=== PATIENT | female | born 1960 | race Caucasian/White ===

== ENCOUNTER 2017-01-12 06:59 | Inpatient (IN) | payer BC ==
[~2017-01-12] VITALS: Ht 167.6 cm; Wt 86.2 kg
[~2017-01-12 06:59] MED LIST: ASPI-482 PO; ATOR40TA59 PO; FLUT1DIS3 IH; LISI40TA PO; METH4TAB2 PO
[2017-01-12] MEDS ORDERED: IPRATRPIUM/ALBUTEROL 0.5/2.5MG 3 ML NEBU. NEB ONE ×3 (07:15→08:00)
--- NOTE | 2017-01-12 07:27 | RAD ---
Portable chest, 01/12/2017: History: Shortness of breath Comparison is made to a study from 10/15/2014. The heart size and pulmonary vascularity are normal. There is mild tortuosity of the thoracic aorta. No pulmonary infiltrates are seen. There is no evidence of pleural fluid. IMPRESSION: No acute cardiopulmonary abnormality is detected.
[2017-01-12] MEDS ORDERED: methylPREDNISolone SOD SUCC PF 125 MG/2 ML VIAL. IV ONE (07:30)
[2017-01-12 07:51] LABS: CALCIUM 9.8 mg/dL (8.5-10.1); CREATININE 0.7 mg/dL (0.6-1.0); GFR 85.9
[2017-01-12 07:52] LABS: BASO # 0.1 x10^3/uL (0.0-0.2); BASO % 1 % (0-3); EOS % 10 % (0-3); HEMATOCRIT 39.9 % (36.0-47.0); HEMOGLOBIN 13.5 g/dL (12.0-15.5); LYMPH # 1.1 x10^3/uL (1.0-4.8); LYMPH % 19 % (24-48); MEAN CORPUSCULAR HEMOGLOBIN 34 pg (25-35); MEAN CORPUSCULAR HGB CONC 34 g/dL (31-37); MEAN CORPUSCULAR VOLUME 101 fL (79-100); MONO % 9 % (0-9); NEUT % 61 % (31-73); PLATELET COUNT 229 x10^3/uL (140-400); RED BLOOD COUNT 3.96 x10^6/uL (3.50-5.40); RED CELL DISTRIBUTION WIDTH 12.7 % (11.5-14.5); WHITE BLOOD COUNT 5.8 x10^3/uL (4.0-11.0)
--- NOTE | 2017-01-12 07:56 | PHYS DOC ---
Past Medical History Past Medical History: Asthma, COPD, High Cholesterol, Hypertension Past Surgical History: Other Additional Past Surgical Histo: ovary removal Alcohol Use: Occasionally Drug Use: None Adult General Chief Complaint Chief Complaint: SHORTNESS OF BREATH HPI HPI 56-year-old female presenting to the emergency department today with shortness of breath. She has a history of COPD. She is to nebulizers at home without much improvement. She reports his symptoms started around 4:00 this morning. Location lungs. Duration intermittent. Mildly alleviated with nebulizer. She denies unilateral leg swelling hemoptysis personal or family history of blood clotting disorder. Review of systems is negative for chest pain fevers chills nausea or vomiting. She denies diaphoresis. All other review of systems is negative unless otherwise noted in history of present illness. ED course: 56-year-old female presenting to the emergency department today with shortness of breath without chest pain. Pertinent physical exam findings showed wheezing bilaterally. Nebulizer given. On reevaluation the patient did not improve. IV steroids and another nebulizer was ordered. The patient was then admitted for further evaluation workup and care including nebulized beta agonists. Review of Systems Review of Systems SEE ABOVE. Current Medications Current Medications Current Medications Medications (Trade) Dose Ordered Sig/Bren Start Time Stop Time Status Last Admin Dose Admin Albuterol Sulfate (Ventolin Neb Soln) 10 mg 1X ONCE 01/12/17 08:00 01/12/17 08:04 DC 01/12/17 08:36 10 MG Albuterol/ Ipratropium (Duoneb) 3 ml 1X ONCE 01/12/17 08:00 01/12/17 08:04 DC 01/12/17 08:26 3 ML Methylprednisolone Sodium Succinate (SOLU-Medrol 125MG VIAL) 125 mg 1X ONCE 01/12/17 07:30 01/12/17 07:36 DC 01/12/17 07:44 125 MG Sodium Chloride 1,000 ml @ 100 mls/hr Q10H 01/12/17 08:06 01/13/17 08:05 Allergies Allergies Allergies Coded Allergies Type Severity Reaction Last Updated Verified No Known Drug Allergies 10/15/14 No Physical Exam Physical Exam SEE ABOVE Constitutional: Well developed, well nourished, no acute distress, non-toxic appearance. [] HENT: Normocephalic, atraumatic, bilateral external ears normal, oropharynx moist, no oral exudates, nose normal. [] Eyes: PERRLA, EOMI, conjunctiva normal, no discharge. [] Neck: Normal range of motion, no tenderness, supple, no stridor. [] Cardiovascular:Heart rate regular rhythm, no murmur [] Lungs & Thorax: Bilateral breath sounds clear to auscultation [] Abdomen: Bowel sounds normal, soft, no tenderness, no masses, no pulsatile masses. [] Skin: Warm, dry, no erythema, no rash. [] Back: No tenderness, no CVA tenderness. [] Extremities: No tenderness, no cyanosis, no clubbing, ROM intact, no edema. [] Neurologic: Alert and oriented X 3, normal motor function, normal sensory function, no focal deficits noted. [] Psychologic: Affect normal, judgement normal, mood normal. [] Current Patient Data Vital Signs Vital Signs Date Time Temp Pulse Resp B/P (MAP) Pulse Ox O2 Delivery O2 Flow Rate FiO2 01/12/17 07:55 93 12 115/58 (77) 93 Room Air 01/12/17 07:04 98.3 98.3 Lab Values Laboratory Tests Test 01/12/17 07:25 White Blood Count 5.8 x10^3/uL (4.0-11.0) Red Blood Count 3.96 x10^6/uL (3.50-5.40) Hemoglobin 13.5 g/dL (12.0-15.5) Hematocrit 39.9 % (36.0-47.0) Mean Corpuscular Volume 101 fL (79-100) H Mean Corpuscular Hemoglobin 34 pg (25-35) Mean Corpuscular Hemoglobin Concent 34 g/dL (31-37) Red Cell Distribution Width 12.7 % (11.5-14.5) Platelet Count 229 x10^3/uL (140-400) Neutrophils (%) (Auto) 61 % (31-73) Lymphocytes (%) (Auto) 19 % (24-48) L Monocytes (%) (Auto) 9 % (0-9) Eosinophils (%) (Auto) 10 % (0-3) H Basophils (%) (Auto) 1 % (0-3) Neutrophils # (Auto) 3.5 x10^3uL (1.8-7.7) Lymphocytes # (Auto) 1.1 x10^3/uL (1.0-4.8) Monocytes # (Auto) 0.5 x10^3/uL (0.0-1.1) Eosinophils # (Auto) 0.6 x10^3/uL (0.0-0.7) Basophils # (Auto) 0.1 x10^3/uL (0.0-0.2) Sodium Level 137 mmol/L (136-145) Potassium Level 4.0 mmol/L (3.5-5.1) Chloride Level 98 mmol/L (98-107) Carbon Dioxide Level 24 mmol/L (21-32) Anion Gap 15 (6-14) H Blood Urea Nitrogen 8 mg/dL (7-20) Creatinine 0.7 mg/dL (0.6-1.0) Estimated GFR (Cockcroft-Gault) 85.9 Glucose Level 131 mg/dL (70-99) H Calcium Level 9.8 mg/dL (8.5-10.1) Total Bilirubin 0.4 mg/dL (0.2-1.0) Direct Bilirubin 0.1 mg/dL (0.0-0.2) Aspartate Amino Transferase (AST) 73 U/L (15-37) H Alanine Aminotransferase (ALT) 108 U/L (14-59) H Alkaline Phosphatase 84 U/L (46-116) Troponin I Quantitative < 0.017 ng/mL (0.000-0.055) QR-Jhi-H-Type Natriuretic Peptide 21 pg/mL (0-124) Total Protein 8.1 g/dL (6.4-8.2) Albumin 4.0 g/dL (3.4-5.0) Lipase 174 U/L (73-393) Laboratory Tests 01/12/17 07:25 Laboratory Tests 01/12/17 07:25 EKG EKG [] Radiology/Procedures Radiology/Procedures [] Course & Med Decision Making Course & Med Decision Making Pertinent Labs and Imaging studies reviewed. (See chart for details) [] Dragon Disclaimer Dragon Disclaimer This electronic medical record was generated, in whole or in part, using a voice recognition dictation system. Departure Departure Impression: Primary Impression: COPD exacerbation Disposition: ADMITTED INPATIENT Admitting Physician: Shobha Todd Condition: IMPROVED Referrals: MICHELLE LUCIANO (PCP) ERUM POSEY MD 6, 2017 07:56
[2017-01-12 07:57] LABS: DIRECT BILIRUBIN 0.1 mg/dL (0.0-0.2); TOTAL BILIRUBIN 0.4 mg/dL (0.2-1.0); TOTAL PROTEIN 8.1 g/dL (6.4-8.2)
[2017-01-12] MEDS ORDERED: ALBUTEROL SULFATE 2.5 MG/3 ML NEBU. CONT NEB ONE (08:00)
--- NOTE | 2017-01-12 08:44 | ACF ---
LEDA CURRY 01/12/17 0844: Admit Criteria Forms Admit Criteria Forms Admit Criteria Forms COPD Clinical Indications for Admission to Inpatient Care (Place 'X' for any and all applicable criteria): Admission is indicated for ANY ONE of the following (1)(2)(3): [ ]I. Acute exacerbation by high-risk comorbidity (e.g., pneumonia, dysrhythmia, heart failure, pleural effusion, pneumothorax) or severe underlying COPD (e.g., steroid dependent) [X]II. Inpatient admission required rather than observation care (see Chronic Obstructive Pulmonary Disease: Observation Care) because of ANY ONE of the following: [X]a) New or pre-existing signs or symptoms of COPD (eg, dyspnea or Tachypnea at rest or with minimal activity) that persist despite outpatient and observation care treatment [ ]b) New-onset hypoxemia (room air SaO2 less than 90%, PO2 less than 60 mm Hg (8.0 kPa)) that persists despite outpatient and observation care treatment [ ]c) Worsening of pre-existing hypoxemia (eg, new or increased requirement for supplemental oxygen to maintain oxygenation at baseline level) that persists despite outpatient and observation care treatment, with oxygen treatment needs performable only in acute inpatient setting [ ]d) Hypercarbia (PCO2 greater than 40 mm Hg (5.3 kPa))-induced respiratory acidosis (pH less than 7.35) that persists despite outpatient and observation care treatment [ ]e) Supplemental oxygen or respiratory treatments for over 24 hours that are performable only in acute inpatient setting [ ]f) Chest tube placement with active evacuation (e.g., suction, drainage) (5) [ ]g) Other condition, treatment or monitoring requiring inpatient admission [ ]III. Planned invasive surgical or diagnostic procedures requiring acute- care hospitalization [ ]IV. Acute respiratory failure (e.g., uncompensated hypercarbia, severe hypoxemia) [ ]V. Severe comorbid condition (e.g., severe steroid myopathy, acute vertebral fracture) that has acutely worsened pulmonary function [ ]. Confusion state, lethargy, obtundation, stupor or coma Extended stay beyond goal length of stay may be needed for (31)(32): [ ]a ) Respiratory Failure. [ ]b) Severe or persisting hypoxemia or hypercarbia [ ]c) Severe or persistent dyspnea [ ]d) Comorbidities (e.g. chronic heart failure, atrial fibrillation with rapid response, pneumonia) [ ]e) Malnutrition The original [facility] [employer] content created by [facility] [employer] has been revised. The portions of the content which have been revised are identified through the use of italic text or in bold, and [facility] has neither reviewed nor approved the modified material. All other unmodified content is copyright [facility] [employer]. Please see references footnoted in the original [facility] [employer] edition 2016 ERUM POSEY MD 01/17/17 0354: Admit Criteria Forms Admit Criteria Forms Admit Criteria Forms I am unable to edit this form. This patient was placed as observation status. This is the only avenue in our electronic medical record for me to document this. All of the above information is not my professional medical opinion. LEDA CURRY Jan 12, 2017 08:44 ERUM POSEY MD Jan 17, 2017 03:54
[2017-01-12] MEDS ORDERED: guaiFENesin DM 200MG/20MG 10 ML SYRUP PO PRN (09:15)
[2017-01-12] MEDS: IV NORMAL SALINE 1000ML BAG 1,000 ML IV SCH ×2 (10:11→21:05)
[2017-01-12] MEDS ORDERED: ASPIRIN ENTERIC COATED 81 MG TABLET.DR. PO SCH ×2 (10:30→21:00)
[2017-01-12] MEDS ORDERED: LISINOPRIL 40 MG TABLET. PO SCH ×2 (10:30→21:00)
[2017-01-12] MEDS ORDERED: SIMV40TA3 PO (10:40)
[2017-01-12 11:00] VITALS: BP 121/77
[2017-01-12] MEDS: IPRATRPIUM/ALBUTEROL 0.5/2.5MG 3 ML NEBU. NEB SCH ×3 (11:13→19:46)
--- NOTE | 2017-01-12 11:19 | EKG ---
[facility] [address] [place] [address] Test Date: 2017-01-12 Test Time: 07:09:43 Pat Name: DEBRA KEYS Department: Room: Gender: F Certified Wellness Program Coordinator: : 1960 Requested By: ERUM POSEY Order Number: [id number] Reading MD: Measurements Intervals [place] Rate: 96 P: 45 MA: 146 QRS: 42 QRSD: 76 T: 54 QT: 342 QTc: 433 Interpretive Statements SINUS RHYTHM NORMAL ECG RI6.01 Unconfirmed report No previous ECG available for comparison
--- NOTE | 2017-01-12 12:42 | PDOC1 ---
History and Physical Date of Admission Date of Admission DATE: 01/12/17 TIME: 12:37 Identification/Chief Complaint Chief Complaint could not breathe Problems: Source Source: Caregiver, Chart review, Patient History of Present Illness History of Present Illness 56 y.o female, prev smoker, quit on October 14, 2014, admits to [facility] with few cigs rarely, sx started few weeks ago, UTI sxs, cough productive, soa, no fevers,denies recent travel or sick contacts, Went to PCP, was given possibly some pO pred and antibiotic? unrecalled names, she claims he did not fill one Rx. Was told could be seasonal allergies. BUt last night/today could not get dep breath hence went to ER, Was wheezy upon arrival, now better after ER tx. CXR neg. Sounds nasal, Wants to go home Past Medical History Cardiovascular: HTN, Hyperlipidemia Pulmonary: Bronchitis, COPD Past Surgical History Past Surgical History: Other, No pertinent history Family History Family History: Heart Disease Social History Smoke: Quit ALCOHOL: social Drugs: None Current Problem List Problem List Problems Medical Problems: (1) COPD exacerbation Status: Acute Problems: Current Medications Current Medications Current Medications Albuterol/ Ipratropium (Duoneb) 3 ml 1X ONCE NEB Last administered on 07:28; Start 01/12/17 at 07:15; Stop 01/12/17 at 07:16; Status DC Methylprednisolone Sodium Succinate (SOLU-Medrol 125MG VIAL) 125 mg 1X ONCE IV Last administered on 01/12/17 07:44; Start 01/12/17 at 07:30; Stop 01/12/17 at 07:36; Status DC Albuterol/ Ipratropium (Duoneb) 3 ml 1X ONCE NEB Last administered on 08:20; Start 01/12/17 at 08:00; Stop 01/12/17 at 08:04; Status DC Albuterol/ Ipratropium (Duoneb) 3 ml 1X ONCE NEB Last administered on 08:26; Start 01/12/17 at 08:00; Stop 01/12/17 at 08:04; Status DC Albuterol Sulfate (Ventolin Neb Soln) 10 mg 1X ONCE CONT NEB Last administered on 01/12/17 08:36; Start 01/12/17 at 08:00; Stop 01/12/17 at 08:04; Status DC Sodium Chloride 1,000 ml @ 100 mls/hr Q10H IV Last administered on 01/12/17 10 :11; Start 01/12/17 at 08:06; Stop 01/13/17 at 08:05 Albuterol/ Ipratropium (Duoneb) 3 ml RTQID NEB Last administered on 01/12/17 11 :13; Start 01/12/17 at 12:00 Guaifenesin (Robitussin Dm) 10 ml PRN Q6HRS PRN PO COUGH; Start 01/12/17 at 09: 15 Aspirin (Ecotrin) 81 mg DAILY PO ; Start 01/12/17 at 10:30; Stop 01/12/17 at 10:40 ; Status DC Atorvastatin Calcium (Lipitor) 40 mg QHS PO ; Start 01/13/17 at 21:00; Status Cancel Lisinopril (Prinivil) 40 mg DAILY PO ; Start 01/12/17 at 10:30; Stop 01/12/17 at 10:40; Status DC Aspirin (Ecotrin) 81 mg QHS PO ; Start 01/12/17 at 21:00 Lisinopril (Prinivil) 40 mg HS PO ; Start 01/12/17 at 21:00 Simvastatin (Zocor) 40 mg QHS PO ; Start 01/12/17 at 21:00 Active Scripts Active Medrol (Methylprednisolone) 4 Mg Tab.ds.pk 1 Pkg PO UD Advair 250-50 Diskus (Fluticasone/Salmeterol) 1 Each Disk.w.dev 1 Puff IH BID Reported Simvastatin 40 Mg Tablet 40 Mg PO HS Aspir 81 (Aspirin) 81 Mg Tablet.dr 1 Tab PO DAILY Lisinopril 40 Mg Tablet 1 Tab PO DAILY Allergies Allergies: Coded Allergies: No Known Drug Allergies (Unverified , 10/15/14) ROS General: No: Chills, Night Sweats, Fatigue, Malaise, Appetite, Other Eyes: No Blurry vision, No Decreased vision, No Double vision, No Dry eyes, No Excessive tearing, No Eye Pain, No Itchy Eyes, No Loss of vision, No Photophobia , No Scotomata, No Uses contacts, No Uses glasses, No Other HEENT: No: Heacaches, Visual Changes, Hearing change, Nasal congestion, Nasal discharge, Oral lesions, Sinus pain, Sore Throat, Epistaxis, Sneezing, Snoring, Tinnitus, Vertigo, Vocal changes, Other ALLERGY AND IMMUNOLOGY: No: Hives, Insect Bite Sensitivity, Itchy/Watery Eyes, Nasal Congestion, Post Nasal Drip, Seasonal Allergies, Other Hematological and Lymphatic: No: Bleeding Problems, Blood Clots, Blood Transfusions, Brusing, Night Sweats, Pallor, Swollen Lymph Nodes, Other ENDOCRINE: No: Breast Changes, Galactorrhea, Hair Pattern Changes, Hot Flashes , Malaise/lethargy, Mood Swings, Palpitations, Polydipsia/polyuria, Skin Changes , Temperature Intolerance, Unexpected Weight Changes, Other Breast: No New/Changing Breast Lumps, No Nipple changes, No Nipple discharge, No Other Respiratory: YES: Cough, Shortness of breath, SOB with excertion Gastrointestinal: No Nausea, No Vomiting, No Abdominal Pain, No Diarrhea, No Constipation, No Melena, No Hematochezia, No Other Genitourinary: No Dysuria, No Frequency, No Incontinence, No Hematuria, No Retention, No Discharge, No Urgency, No Pain, No Flank Pain, No Other, No , No , No , No , No , No , No Musculoskeletal: No Gait Disturbance, No Joint Pain, No Joint Stiffness, No Joint Swelling, No Muscle Pain, No Muscular Weakness, No Pain In:, No Swelling In:, No Other Neurological: No Behavorial Changes, No Bowel/Bladder ControlChng, No Confusion , No Dizziness, No Gait Disturbance, No Headaches, No Impaired Coord/balance, No Memory Loss, No Numbness/Tingling, No Seizures, No Speech Problems, No Tremors, No Visual Changes, No Weakness, No Other Skin: No Dry Skin, No Eczema, No Hair Changes, No Lumps, No Mole Changes, No Mottling, No Nail Changes, No Pruritus, No Rash, No Skin Lesion Changes, No Other, No Acne Physical Exam General: Alert, Oriented X3, Cooperative, No acute distress HEENT: Atraumatic, PERRLA Lungs: Normal air movement, Other (dec BS, but no wheeZes) Breasts: Normal, Rt breast nml w/o mass, Lt breast nml w/o mass, Nipples normal Abdomen: Normal bowel sounds, Soft, No tenderness, No hepatosplenomegaly, No masses Rectal Exam: not examined PELVIC: Nml ext genitalia Extremities: No clubbing, No cyanosis, No edema, Normal pulses, No tenderness/ swelling Skin: No rashes, No breakdown, No significant lesion Neuro: Normal gait, Normal speech, Strength at 5/5 X4 ext, Normal tone, Sensation intact, Cranial nerves 3-12 NL, Reflexes 2+ Psych/Mental Status: Mental status NL, Mood NL Vitals Vitals Vital Signs Date Time Temp Pulse Resp B/P (MAP) Pulse Ox O2 Delivery O2 Flow Rate FiO2 01/12/17 11:16 94 Room Air 01/12/17 11:00 97.5 98 18 121/77 (92) 97.5 Labs Labs Laboratory Tests Test 01/12/17 07:25 White Blood Count 5.8 x10^3/uL (4.0-11.0) Red Blood Count 3.96 x10^6/uL (3.50-5.40) Hemoglobin 13.5 g/dL (12.0-15.5) Hematocrit 39.9 % (36.0-47.0) Mean Corpuscular Volume 101 fL (79-100) Mean Corpuscular Hemoglobin 34 pg (25-35) Mean Corpuscular Hemoglobin Concent 34 g/dL (31-37) Red Cell Distribution Width 12.7 % (11.5-14.5) Platelet Count 229 x10^3/uL (140-400) Neutrophils (%) (Auto) 61 % (31-73) Lymphocytes (%) (Auto) 19 % (24-48) Monocytes (%) (Auto) 9 % (0-9) Eosinophils (%) (Auto) 10 % (0-3) Basophils (%) (Auto) 1 % (0-3) Neutrophils # (Auto) 3.5 x10^3uL (1.8-7.7) Lymphocytes # (Auto) 1.1 x10^3/uL (1.0-4.8) Monocytes # (Auto) 0.5 x10^3/uL (0.0-1.1) Eosinophils # (Auto) 0.6 x10^3/uL (0.0-0.7) Basophils # (Auto) 0.1 x10^3/uL (0.0-0.2) Sodium Level 137 mmol/L (136-145) Potassium Level 4.0 mmol/L (3.5-5.1) Chloride Level 98 mmol/L (98-107) Carbon Dioxide Level 24 mmol/L (21-32) Anion Gap 15 (6-14) Blood Urea Nitrogen 8 mg/dL (7-20) Creatinine 0.7 mg/dL (0.6-1.0) Estimated GFR (Cockcroft-Gault) 85.9 Glucose Level 131 mg/dL (70-99) Calcium Level 9.8 mg/dL (8.5-10.1) Total Bilirubin 0.4 mg/dL (0.2-1.0) Direct Bilirubin 0.1 mg/dL (0.0-0.2) Aspartate Amino Transf (AST/SGOT) 73 U/L (15-37) Alanine Aminotransferase (ALT/SGPT) 108 U/L (14-59) Alkaline Phosphatase 84 U/L (46-116) Troponin I Quantitative < 0.017 ng/mL (0.000-0.055) BJ-Rui-P-Type Natriuretic Peptide 21 pg/mL (0-124) Total Protein 8.1 g/dL (6.4-8.2) Albumin 4.0 g/dL (3.4-5.0) Lipase 174 U/L (73-393) Laboratory Tests Test 01/12/17 07:25 White Blood Count 5.8 x10^3/uL (4.0-11.0) Red Blood Count 3.96 x10^6/uL (3.50-5.40) Hemoglobin 13.5 g/dL (12.0-15.5) Hematocrit 39.9 % (36.0-47.0) Mean Corpuscular Volume 101 fL (79-100) Mean Corpuscular Hemoglobin 34 pg (25-35) Mean Corpuscular Hemoglobin Concent 34 g/dL (31-37) Red Cell Distribution Width 12.7 % (11.5-14.5) Platelet Count 229 x10^3/uL (140-400) Neutrophils (%) (Auto) 61 % (31-73) Lymphocytes (%) (Auto) 19 % (24-48) Monocytes (%) (Auto) 9 % (0-9) Eosinophils (%) (Auto) 10 % (0-3) Basophils (%) (Auto) 1 % (0-3) Neutrophils # (Auto) 3.5 x10^3uL (1.8-7.7) Lymphocytes # (Auto) 1.1 x10^3/uL (1.0-4.8) Monocytes # (Auto) 0.5 x10^3/uL (0.0-1.1) Eosinophils # (Auto) 0.6 x10^3/uL (0.0-0.7) Basophils # (Auto) 0.1 x10^3/uL (0.0-0.2) Sodium Level 137 mmol/L (136-145) Potassium Level 4.0 mmol/L (3.5-5.1) Chloride Level 98 mmol/L (98-107) Carbon Dioxide Level 24 mmol/L (21-32) Anion Gap 15 (6-14) Blood Urea Nitrogen 8 mg/dL (7-20) Creatinine 0.7 mg/dL (0.6-1.0) Estimated GFR (Cockcroft-Gault) 85.9 Glucose Level 131 mg/dL (70-99) Calcium Level 9.8 mg/dL (8.5-10.1) Total Bilirubin 0.4 mg/dL (0.2-1.0) Direct Bilirubin 0.1 mg/dL (0.0-0.2) Aspartate Amino Transf (AST/SGOT) 73 U/L (15-37) Alanine Aminotransferase (ALT/SGPT) 108 U/L (14-59) Alkaline Phosphatase 84 U/L (46-116) Troponin I Quantitative < 0.017 ng/mL (0.000-0.055) DZ-Fob-J-Type Natriuretic Peptide 21 pg/mL (0-124) Total Protein 8.1 g/dL (6.4-8.2) Albumin 4.0 g/dL (3.4-5.0) Lipase 174 U/L (73-393) VTE Prophylaxis Ordered VTE Prophylaxis Devices: Yes VTE Pharmacological Prophylaxi: Yes Assessment/Plan Assessment/Plan 1. Acute bronchitis 2. COPD 3. Ex smoker PLAN: NEbs, cough med,steroid H2 antag Wait pulmo rounds OBS TARIK CID MD Jan 12, 2017 12:42
[2017-01-12] MEDS ORDERED: CETIRIZINE HCL 10 MG TABLET. PO SCH ×2 (13:30→21:00)
[2017-01-12 15:00] VITALS: BP 127/68
[2017-01-12 19:00] VITALS: BP 133/72
[2017-01-12] MEDS ORDERED: SIMVASTATIN 40 MG TABLET. PO SCH (21:00)
[2017-01-12 23:00] VITALS: BP 140/78
[2017-01-13] MEDS: IV NORMAL SALINE 1000ML BAG 1,000 ML IV SCH (04:06)
[2017-01-13 05:10] LABS: BASO % 0 % (0-3); EOS % 0 % (0-3); HEMATOCRIT 39.9 % (36.0-47.0); HEMOGLOBIN 13.3 g/dL (12.0-15.5); LYMPH # 0.7 x10^3/uL (1.0-4.8); LYMPH % 5 % (24-48); MEAN CORPUSCULAR HEMOGLOBIN 33 pg (25-35); MEAN CORPUSCULAR HGB CONC 33 g/dL (31-37); MEAN CORPUSCULAR VOLUME 101 fL (79-100); MONO % 5 % (0-9); NEUT % 90 % (31-73); PLATELET COUNT 236 x10^3/uL (140-400); RED BLOOD COUNT 3.97 x10^6/uL (3.50-5.40); WHITE BLOOD COUNT 13.2 x10^3/uL (4.0-11.0)
[2017-01-13 05:36] LABS: CREATININE 0.7 mg/dL (0.6-1.0); GFR 85.9; POTASSIUM 4.8 mmol/L (3.5-5.1)
[2017-01-13 07:00] VITALS: BP 107/67
[2017-01-13] MEDS: IPRATRPIUM/ALBUTEROL 0.5/2.5MG 3 ML NEBU. NEB SCH ×2 (07:33→10:55)
[2017-01-13 07:52] LABS: PLT ESTIMATE ADEQUATE (ADEQUATE)
[2017-01-13] MEDS ORDERED: predniSONE 20 MG TABLET PO ONE (09:15)
[2017-01-13 10:40] VITALS: BP 107/69
--- NOTE | 2017-01-13 12:42 | PDOC3 ---
Discharge Summary Visit Information Date of Admission: Jan 12, 2017 Date of Discharge: Jan 13, 2017 Final Diagnosis Problems Medical Problems: (1) COPD exacerbation Status: Acute Brief Hospital Course Allergies Allergies Coded Allergies Type Severity Reaction Last Updated Verified No Known Drug Allergies 10/15/14 No Vital Signs Vital Signs Date Time Temp Pulse Resp B/P (MAP) Pulse Ox O2 Delivery O2 Flow Rate FiO2 01/13/17 10:55 96 Room Air 01/13/17 10:40 96.6 71 18 107/69 (82) 96.6 Lab Results Laboratory Tests Test 01/12/17 07:25 01/12/17 14:00 01/12/17 19:35 01/13/17 04:20 White Blood Count 5.8 x10^3/uL (4.0-11.0) 13.2 x10^3/uL (4.0-11.0) Red Blood Count 3.96 x10^6/uL (3.50-5.40) 3.97 x10^6/uL (3.50-5.40) Hemoglobin 13.5 g/dL (12.0-15.5) 13.3 g/dL (12.0-15.5) Hematocrit 39.9 % (36.0-47.0) 39.9 % (36.0-47.0) Mean Corpuscular Volume 101 fL (79-100) 101 fL (79-100) Mean Corpuscular Hemoglobin 34 pg (25-35) 33 pg (25-35) Mean Corpuscular Hemoglobin Concent 34 g/dL (31-37) 33 g/dL (31-37) Red Cell Distribution Width 12.7 % (11.5-14.5) 13.0 % (11.5-14.5) Platelet Count 229 x10^3/uL (140-400) 236 x10^3/uL (140-400) Neutrophils (%) (Auto) 61 % (31-73) 90 % (31-73) Lymphocytes (%) (Auto) 19 % (24-48) 5 % (24-48) Monocytes (%) (Auto) 9 % (0-9) 5 % (0-9) Eosinophils (%) (Auto) 10 % (0-3) 0 % (0-3) Basophils (%) (Auto) 1 % (0-3) 0 % (0-3) Neutrophils # (Auto) 3.5 x10^3uL (1.8-7.7) 11.9 x10^3uL (1.8-7.7) Lymphocytes # (Auto) 1.1 x10^3/uL (1.0-4.8) 0.7 x10^3/uL (1.0-4.8) Monocytes # (Auto) 0.5 x10^3/uL (0.0-1.1) 0.6 x10^3/uL (0.0-1.1) Eosinophils # (Auto) 0.6 x10^3/uL (0.0-0.7) 0.0 x10^3/uL (0.0-0.7) Basophils # (Auto) 0.1 x10^3/uL (0.0-0.2) 0.0 x10^3/uL (0.0-0.2) Sodium Level 137 mmol/L (136-145) 137 mmol/L (136-145) Potassium Level 4.0 mmol/L (3.5-5.1) 4.8 mmol/L (3.5-5.1) Chloride Level 98 mmol/L (98-107) 101 mmol/L (98-107) Carbon Dioxide Level 24 mmol/L (21-32) 25 mmol/L (21-32) Anion Gap 15 (6-14) 11 (6-14) Blood Urea Nitrogen 8 mg/dL (7-20) 9 mg/dL (7-20) Creatinine 0.7 mg/dL (0.6-1.0) 0.7 mg/dL (0.6-1.0) Estimated GFR (Cockcroft-Gault) 85.9 85.9 Glucose Level 131 mg/dL (70-99) 162 mg/dL (70-99) Calcium Level 9.8 mg/dL (8.5-10.1) 10.0 mg/dL (8.5-10.1) Total Bilirubin 0.4 mg/dL (0.2-1.0) Direct Bilirubin 0.1 mg/dL (0.0-0.2) Aspartate Amino Transf (AST/SGOT) 73 U/L (15-37) Alanine Aminotransferase (ALT/SGPT) 108 U/L (14-59) Alkaline Phosphatase 84 U/L (46-116) Troponin I Quantitative < 0.017 ng/mL (0.000-0.055) < 0.017 ng/mL (0.000-0.055) < 0.017 ng/mL (0.000-0.055) OW-Wbk-M-Type Natriuretic Peptide 21 pg/mL (0-124) Total Protein 8.1 g/dL (6.4-8.2) Albumin 4.0 g/dL (3.4-5.0) Lipase 174 U/L (73-393) Segmented Neutrophils % 87 % (35-66) Band Neutrophils % 3 % (0-9) Lymphocytes % 5 % (24-48) Monocytes % 5 % (0-10) Platelet Estimate Adequate (ADEQUATE) Laboratory Tests Test 01/12/17 14:00 01/12/17 19:35 01/13/17 04:20 Troponin I Quantitative < 0.017 ng/mL (0.000-0.055) < 0.017 ng/mL (0.000-0.055) White Blood Count 13.2 x10^3/uL (4.0-11.0) Red Blood Count 3.97 x10^6/uL (3.50-5.40) Hemoglobin 13.3 g/dL (12.0-15.5) Hematocrit 39.9 % (36.0-47.0) Mean Corpuscular Volume 101 fL (79-100) Mean Corpuscular Hemoglobin 33 pg (25-35) Mean Corpuscular Hemoglobin Concent 33 g/dL (31-37) Red Cell Distribution Width 13.0 % (11.5-14.5) Platelet Count 236 x10^3/uL (140-400) Neutrophils (%) (Auto) 90 % (31-73) Lymphocytes (%) (Auto) 5 % (24-48) Monocytes (%) (Auto) 5 % (0-9) Eosinophils (%) (Auto) 0 % (0-3) Basophils (%) (Auto) 0 % (0-3) Neutrophils # (Auto) 11.9 x10^3uL (1.8-7.7) Lymphocytes # (Auto) 0.7 x10^3/uL (1.0-4.8) Monocytes # (Auto) 0.6 x10^3/uL (0.0-1.1) Eosinophils # (Auto) 0.0 x10^3/uL (0.0-0.7) Basophils # (Auto) 0.0 x10^3/uL (0.0-0.2) Segmented Neutrophils % 87 % (35-66) Band Neutrophils % 3 % (0-9) Lymphocytes % 5 % (24-48) Monocytes % 5 % (0-10) Platelet Estimate Adequate (ADEQUATE) Sodium Level 137 mmol/L (136-145) Potassium Level 4.8 mmol/L (3.5-5.1) Chloride Level 101 mmol/L (98-107) Carbon Dioxide Level 25 mmol/L (21-32) Anion Gap 11 (6-14) Blood Urea Nitrogen 9 mg/dL (7-20) Creatinine 0.7 mg/dL (0.6-1.0) Estimated GFR (Cockcroft-Gault) 85.9 Glucose Level 162 mg/dL (70-99) Calcium Level 10.0 mg/dL (8.5-10.1) Brief Hospital Course 56 y.o female, prev smoker, quit on October 14, 2014, admits to cheating with few cigs rarely, sx started few weeks ago, UTI sxs, cough productive, soa, no fevers,denies recent travel or sick contacts, Went to PCP, was given possibly some pO pred and antibiotic? unrecalled names, she claims he did not fill one Rx. Was told could be seasonal allergies. BUt last night/today could not get dep breath hence went to ER, Was wheezy upon arrival, now better after ER tx. CXR neg. Sounds nasal, Wants to go home COurse: stayed overnight, wheezing better, HAs nebulizer and nebules at home NO antibiotics needed/ CXR normal PT seen and examined DispO; home COnulst: none Proc; None Discharge Information Condition at Discharge: Improved, Stable Disposition/Orders: D/C to Home Scheduled Aspirin (Aspir 81), 1 TAB PO DAILY, (Reported) Fluticasone/Salmeterol (Advair 250-50 Diskus), 1 PUFF IH BID Lisinopril (Lisinopril), 1 TAB PO DAILY, (Reported) Methylprednisolone (Medrol), 1 PKG PO UD Simvastatin (Simvastatin), 40 MG PO HS, (Reported) TARIK CID MD Jan 13, 2017 12:42
[2017-01-13] MEDS ORDERED: ATORVASTATIN CALCIUM 40 MG TABLET. PO SCH (21:00)
== END 2017-01-13 13:18 | disposition home or self-care (01) | DRG 202 ==
LOC: ER 06:59 → 5 NORTH 08:09
PROVIDERS: ADMIT Internal Medicine; ATTEND Internal Medicine
DX: J20.9 Acute bronchitis, unspecified (principal); J44.0 Chronic obstructive pulmonary disease with (acute) lower respiratory infection; J44.1 Chronic obstructive pulmonary disease with (acute) exacerbation; I10 Essential (primary) hypertension; E78.5 Hyperlipidemia, unspecified; E78.00 Pure hypercholesterolemia, unspecified; Z79.51 Long term (current) use of inhaled steroids; Z87.891 Personal history of nicotine dependence; Z79.899 Other long term (current) drug therapy; Z82.49 Family history of ischemic heart disease and other diseases of the circulatory system
CPT/HCPCS: 36415; 71010; 80048; 80076; 83690; 83880; 84484; 85007; 85027; 93005; 94250; 94640; 94645; 94760; 96374; J2930; J7030; J7512; J7620; 99285-25

== ENCOUNTER 2019-09-18 13:56 | Emergency (ER) | payer BC, OTHER ==
[~2019-09-18] VITALS: Ht 167.6 cm; Wt 93.0 kg
[~2019-09-18 13:56] MED LIST changes: +LISI-130 PO; -LISI40TA PO; +SIMV40TA18 PO
[2019-09-18] MEDS ORDERED: LISI-130 PO (14:25)
--- NOTE | 2019-09-18 14:25 | PHYS DOC ---
Past Medical History Past Medical History: Asthma, COPD, High Cholesterol, Hypertension Past Surgical History: Other Additional Past Surgical Histo: ovary removal Smoking Status: Former Smoker Alcohol Use: Occasionally Drug Use: None Adult General Chief Complaint Chief Complaint: NOSEBLEED HPI HPI Patient is a 58 year old female who presents secondary to intermittent nosebleed since last night. Patient admits to being off her blood pressure medication for the past couple of months secondary to insurance issues. Currently her nose is hemostatic. She blew a large clot just prior to arrival. No other treatment prior to arrival. No chest pain, shortness of breath, dizziness or headache. Review of Systems Review of Systems All other systems were reviewed and found to be within normal limits, except as documented in this note. Allergies Allergies Allergies Coded Allergies Type Severity Reaction Last Updated Verified No Known Drug Allergies 10/15/14 No Physical Exam Physical Exam Constitutional: Well developed, well nourished, no acute distress, non-toxic appearance. [] HENT: Normocephalic, atraumatic, bilateral external ears normal, oropharynx moist, patient's nasal mucosa is friable without evidence of active bleeding. Eyes: PERRLA, EOMI, conjunctiva normal, no discharge. [] Neck: Normal range of motion, no tenderness, supple, no stridor. [] Cardiovascular:Heart rate regular rhythm, no murmur [] Lungs & Thorax: Bilateral breath sounds clear to auscultation [] Skin: Warm, dry, no erythema, no rash. [] Back: No tenderness, no CVA tenderness. [] Extremities: No tenderness, no cyanosis, no clubbing, ROM intact, no edema. [] Neurologic: Alert and oriented X 3, normal motor function, normal sensory function, no focal deficits noted. [] EKG EKG [] Radiology/Procedures Radiology/Procedures [] Course & Med Decision Making Course & Med Decision Making Pertinent Labs and Imaging studies reviewed. (See chart for details) 1421: Patient's epistaxis is currently resolved. Her blood pressure is elevated so we will restart her on her 40 mg of lisinopril. Will prescribe lisinopril x1 month. Patient instructed to use Afrin and nasal packing for further nosebleeds. There is no area for cautery Dragon Disclaimer Dragon Disclaimer This electronic medical record was generated, in whole or in part, using a voice recognition dictation system. Departure Departure Impression: Primary Impression: Epistaxis Additional Impression: Hypertension Disposition: HOME, SELF-CARE Condition: STABLE Referrals: TERRY PIPER MD (PCP) Follow up with ongoing blood pressure management Patient Instructions: Hypertension, Nosebleed Additional Instructions: If you continue to have nosebleeds please use 2 sprays of Afrin in the nostril that is affected and then apply packing with Kleenex or toilet paper. Scripts Lisinopril (LISINOPRIL) 40 Mg Tablet 1 TAB PO DAILY, #90 TAB 1 Refill Prov: ALYSSA HAIDER DO 09/18/19 Problem Qualifiers ALYSSA HAIDER DO Sep 18, 2019 14:25
[2019-09-18 14:35] VITALS: BP 143/80
[2019-09-18] MEDS: LISINOPRIL 10 MG TABLET PO ONE (14:35)
== END 2019-09-18 14:36 | disposition home or self-care (01) ==
LOC: ER 13:56
DX: I10 Essential (primary) hypertension (principal); R04.0 Epistaxis; J44.9 Chronic obstructive pulmonary disease, unspecified; E78.00 Pure hypercholesterolemia, unspecified; Z87.891 Personal history of nicotine dependence; Z98.890 Other specified postprocedural states
CPT/HCPCS: 99283

== ENCOUNTER 2019-10-11 06:46 | Emergency (ER) | payer OTHER ==
[~2019-10-11] VITALS: Ht 167.6 cm; Wt 90.0 kg
[2019-10-11 07:16] VITALS: BP 139/67
[2019-10-11] MEDS: predniSONE 20 MG TABLET PO ONE (07:25)
[2019-10-11] MEDS: BENZONATATE 100 MG CAPSULE. PO ONE (07:25)
[2019-10-11] MEDS ORDERED: PRED20TA PO (07:29)
[2019-10-11] MEDS ORDERED: CODE10LI PO (07:29)
[2019-10-11] MEDS ORDERED: ALBU2.5V14 NEB (07:29)
--- NOTE | 2019-10-11 07:29 | PHYS DOC ---
Past Medical History Past Medical History: Asthma, COPD, High Cholesterol, Hypertension Past Surgical History: Other Additional Past Surgical Histo: ovary removal Smoking Status: Former Smoker Alcohol Use: Occasionally Drug Use: None Adult General Chief Complaint Chief Complaint: SHORTNESS OF BREATH [facility] HPI Patient is a 59-year-old female with a history of COPD who presents with a several day history of increasing cough but she states she is not particularly short of breath. She's been using nebulized albuterol at home but she is out. She states she triggered her COPD by doing yardwork raking leaves in getting into some pollen. She has not had any fever chills or sweats. She denies any hemoptysis. She states she would not have come to the emergency department if she had not run out of her albuterol nebulize bullets at home. She has not had any travel and she has not been exposed to anyone that sick. She does state that she has a dry cough which is worse at night and his been keeping her up.[] Review of Systems Review of Systems Constitutional: Denies fever or chills [] Eyes: Denies change in visual acuity, redness, or eye pain [] HENT: Denies nasal congestion or sore throat [] Respiratory: Per history of present illness[] Cardiovascular: No additional information not addressed in HPI [] GI: Denies abdominal pain, nausea, vomiting, bloody stools or diarrhea [] : Denies dysuria or hematuria [] Musculoskeletal: Denies back pain or joint pain [] Integument: Denies rash or skin lesions [] Neurologic: Denies headache, focal weakness or sensory changes [] Endocrine: Denies polyuria or polydipsia [] All other systems were reviewed and found to be within normal limits, except as documented in this note. Allergies Allergies Allergies Coded Allergies Type Severity Reaction Last Updated Verified No Known Drug Allergies 10/15/14 No Physical Exam Physical Exam Constitutional: Well developed, well nourished, no acute distress, non-toxic appearance, talking in full sentences with no distress, walked back to her room with no worsening of her shortness of breath. [] HENT: Normocephalic, atraumatic, bilateral external ears normal, oropharynx moist, no oral exudates, nose normal. [] Eyes: PERRLA, EOMI, conjunctiva normal, no discharge. [] Neck: Normal range of motion, no tenderness, supple, no stridor. [] Cardiovascular:Heart rate regular rhythm, no murmur [] Lungs & Thorax: Very mild scattered expiratory wheeze[] Abdomen: Bowel sounds normal, soft, no tenderness, no masses, no pulsatile masses. [] Skin: Warm, dry, no erythema, no rash. [] Back: No tenderness, no CVA tenderness. [] Extremities: No tenderness, no cyanosis, no clubbing, ROM intact, no edema. [] Neurologic: Alert and oriented X 3, normal motor function, normal sensory function, no focal deficits noted. [] Psychologic: Affect normal, judgement normal, mood normal. [] EKG EKG [] Radiology/Procedures Radiology/Procedures [] Course & Med Decision Making Course & Med Decision Making Pertinent Labs and Imaging studies reviewed. (See chart for details) [ED course: Evaluation reveals a 59-year-old female who is likely in a very mild COPD exacerbation. Start her on some steroids give her some cough medicine. I'll prescribe her some medication for her nebulizer to take at home. She states she has a metered-dose inhaler that is been on back order that should be ready at the pharmacy today. I do not believe she needs any aggressive treatment here in the emergency department.] Dragon Disclaimer Dragon Disclaimer This electronic medical record was generated, in whole or in part, using a voice recognition dictation system. Departure Departure Impression: Primary Impression: COPD exacerbation Disposition: 01 HOME, SELF-CARE Condition: STABLE Referrals: TERRY PIPER MD (PCP) Patient Instructions: Chronic Obstructive Pulmonary Disease Exacerbation Additional Instructions: Return to the emergency department with any new or concerning symptoms. Scripts Codeine Phosphate/Guaifenesin (Guaifen-Codeine 200-20 mg/10Ml) 10 Ml Liquid 10 ML PO PRN Q8HRS, #120 LIQUID Prov: PRUDENCE LEWIS DO 10/10/20 Albuterol Sulfate (ALBUTEROL SULFATE CONC NEB SOLN) 2.5 Mg/0.5 Ml Vial.neb 1 VIAL NEB Q4HRS, #60 VIAL 1 Refill Prov: PRUDENCE LEWIS DO 20 Prednisone (PREDNISONE) 20 Mg Tablet 3 TAB PO DAILY PRN for COUGH for 7 Days, #21 TAB Prov: PRUDENCE LEWIS DO 10/11/19 PRUDENCE LEWIS DO Oct 11, 2019 07:29
== END 2019-10-11 07:36 | disposition home or self-care (01) ==
LOC: ER 06:46
DX: J44.1 Chronic obstructive pulmonary disease with (acute) exacerbation (principal); R05 Cough; E78.00 Pure hypercholesterolemia, unspecified; I10 Essential (primary) hypertension; Z98.890 Other specified postprocedural states; Z87.891 Personal history of nicotine dependence
CPT/HCPCS: 99283; J7512

== ENCOUNTER 2019-11-02 13:44 | Inpatient (IN) | payer OTHER ==
[~2019-11-02] VITALS: Ht 167.6 cm; Wt 98.2 kg
[~2019-11-02 13:44] MED LIST changes: +ALBU2.5V14 NEB; +CODE10LI PO; +PRED20TA PO
[2019-11-02] MEDS ORDERED: ALBUTEROL SULFATE 2.5 MG/3 ML NEBU. NEB ONE (14:15)
[2019-11-02] MEDS ORDERED: methylPREDNISolone SOD SUCC PF 125 MG/2 ML VIAL. IV ONE (14:15)
[2019-11-02] MEDS ORDERED: IPRATRPIUM/ALBUTEROL 0.5/2.5MG 3 ML NEBU. NEB ONE (14:15)
[2019-11-02 14:27] LABS: BASO # 0.1 x10^3/uL (0.0-0.2); BASO % 1 % (0-3); EOS # 0.4 x10^3/uL (0.0-0.7); EOS % 7 % (0-3); HEMATOCRIT 44.9 % (36.0-47.0); HEMOGLOBIN 15.2 g/dL (12.0-15.5); LYMPH # 1.4 x10^3/uL (1.0-4.8); LYMPH % 23 % (24-48); MEAN CORPUSCULAR HEMOGLOBIN 35 pg (25-35); MEAN CORPUSCULAR HGB CONC 34 g/dL (31-37); MEAN CORPUSCULAR VOLUME 103 fL (79-100); MONO # 0.5 x10^3/uL (0.0-1.1); MONO % 9 % (0-9); NEUT # 3.6 x10^3/uL (1.8-7.7); NEUT % 60 % (31-73); PLATELET COUNT 221 x10^3/uL (140-400); RED BLOOD COUNT 4.36 x10^6/uL (3.50-5.40); RED CELL DISTRIBUTION WIDTH 13.1 % (11.5-14.5)
[2019-11-02 14:36] LABS: CALCIUM 9.3 mg/dL (8.5-10.1); CREATININE 0.7 mg/dL (0.6-1.0); GFR 85.1; POTASSIUM 4.3 mmol/L (3.5-5.1)
--- NOTE | 2019-11-02 14:36 | PHYS DOC ---
Past Medical History Past Medical History: Asthma, COPD, High Cholesterol, Hypertension Past Surgical History: Other Additional Past Surgical Histo: ovary removal Smoking Status: Former Smoker Alcohol Use: Occasionally Drug Use: None General Adult EDM: Chief Complaint: SHORTNESS OF BREATH HPI: HPI: Patient is a 59-year-old female with a history of COPD who presents with a s everal week history of shortness of breath. She was initially seen by me in the emergency department a couple of weeks ago was given some nebs and steroids improved and was sent home. When she got home she said she was only taking her prescribed prednisone as needed and was utilizing her albuterol nebs without much relief. She states she would take the neb and then become short of breath shortly after that. She denies any fever chills or sweats. She has had no anosmia or taste disruption. She denies any hemoptysis. She does state that she has been active out mowing the grass and it seems as if her symptoms became worse after mowing the grass. [] Review of Systems: Review of Systems: Constitutional: Denies fever or chills. [] Eyes: Denies change in visual acuity. [] HENT: Denies nasal congestion or sore throat. [] Respiratory: Per HPI [] Cardiovascular: Denies chest pain or edema. [] GI: Denies abdominal pain, nausea, vomiting, bloody stools or diarrhea. [] : Denies dysuria. [] Musculoskeletal: Denies back pain or joint pain. [] Integument: Denies rash. [] Neurologic: Denies headache, focal weakness or sensory changes. [] Endocrine: Denies polyuria or polydipsia. [] Lymphatic: Denies swollen glands. [] Psychiatric: Reports anxiety [] Heart Score: Risk Factors: Risk Factors: DM, Current or recent (<one month) smoker, HTN, HLP, family history of CAD, obesity. Risk Scores: Score 0 - 3: 2.5% MACE over next 6 weeks - Discharge Home Score 4 - 6: 20.3% MACE over next 6 weeks - Admit for Clinical Observation Score 7 - 10: 72.7% MACE over next 6 weeks - Early Invasive Strategies Current Medications: Current Medications Medications (Trade) Dose Ordered Sig/Bren Start Time Stop Time Status Last Admin Dose Admin Albuterol Sulfate (Ventolin Neb Soln) 5 mg 1X ONCE 11/02/19 14:15 11/02/19 14:16 DC Albuterol/ Ipratropium (Duoneb) 3 ml 1X ONCE 11/02/19 14:15 11/02/19 14:16 DC Methylprednisolone Sodium Succinate (SOLU-Medrol 125MG VIAL) 125 mg 1X ONCE 11/02/19 14:15 11/02/19 14:16 DC 11/02/19 14:29 125 MG Allergies: Allergies: Allergies Coded Allergies Type Severity Reaction Last Updated Verified No Known Drug Allergies 10/15/14 No Physical Exam: PE: Constitutional: Well developed, well nourished, moderate respiratory distress, non-toxic appearance. [] HENT: Normocephalic, atraumatic, bilateral external ears normal, oropharynx moist, no oral exudates, nose normal. [] Eyes: PERRLA, EOMI, conjunctiva normal, no discharge. [] Neck: Normal range of motion, no tenderness, supple, no stridor. [] Cardiovascular:Heart rate regular rhythm, no murmur [] Lungs & Thorax: Scattered wheezes throughout both lungs [] Abdomen: Bowel sounds normal, soft, no tenderness, no masses, no pulsatile masses. [] Skin: Warm, dry, no erythema, no rash. [] Back: No tenderness, no CVA tenderness. [] Extremities: No tenderness, no cyanosis, no clubbing, ROM intact, no edema. [] Neurologic: Alert and oriented X 3, normal motor function, normal sensory function, no focal deficits noted. [] Psychologic: Very anxious [] Current Patient Data: Labs: Laboratory Tests Test 11/02/19 14:15 White Blood Count 6.0 x10^3/uL (4.0-11.0) Red Blood Count 4.36 x10^6/uL (3.50-5.40) Hemoglobin 15.2 g/dL (12.0-15.5) Hematocrit 44.9 % (36.0-47.0) Mean Corpuscular Volume 103 fL (79-100) H Mean Corpuscular Hemoglobin 35 pg (25-35) Mean Corpuscular Hemoglobin Concent 34 g/dL (31-37) Red Cell Distribution Width 13.1 % (11.5-14.5) Platelet Count 221 x10^3/uL (140-400) Neutrophils (%) (Auto) 60 % (31-73) Lymphocytes (%) (Auto) 23 % (24-48) L Monocytes (%) (Auto) 9 % (0-9) Eosinophils (%) (Auto) 7 % (0-3) H Basophils (%) (Auto) 1 % (0-3) Neutrophils # (Auto) 3.6 x10^3/uL (1.8-7.7) Lymphocytes # (Auto) 1.4 x10^3/uL (1.0-4.8) Monocytes # (Auto) 0.5 x10^3/uL (0.0-1.1) Eosinophils # (Auto) 0.4 x10^3/uL (0.0-0.7) Basophils # (Auto) 0.1 x10^3/uL (0.0-0.2) Laboratory Tests 11/02/19 14:15 Vital Signs: Vital Signs Date Time Temp Pulse Resp B/P (MAP) Pulse Ox O2 Delivery O2 Flow Rate FiO2 11/02/19 13:50 98.6 97 32 160/75 (103) 90 Room Air 98.6 EKG: EKG: [] Radiology/Procedures: Radiology/Procedures: [] Course & Med Decision Making: Course & Med Decision Making Pertinent Labs and Imaging studies reviewed. (See chart for details) [ED course: Evaluation reveals a 59-year-old female with failed outpatient COPD exacerbation. She was given 125 mg of Solu-Medrol and an hour-long nebulized treatment during her stay in the department and still continued to wheeze. She also had some low-grade fever and evidence of possible pneumonia on her chest x- ray therefore she was started on Rocephin and azithromycin. She will be a dmitted to the hospitalist service. CRITICAL CARE: Time spent was 35 minutes. This includes medical management, evaluation, reevaluation, discussion with consultants and family. Critical Care does NOT include time spent on separately billed procedures.] Dragon Disclaimer: Dragon Disclaimer: This electronic medical record was generated, in whole or in part, using a voice recognition dictation system. Departure Departure Impression: Primary Impression: COPD exacerbation Disposition: ADMITTED INPATIENT Admitting Physician: HIMS Condition: GUARDED Referrals: NO PCP (PCP) PRUDENCE LEWIS DO Nov 02, 2019 14:35
[2019-11-02 14:42] LABS: ALBUMIN 3.2 g/dL (3.4-5.0); ALBUMIN/GLOBULIN RATIO 0.6 (1.0-1.7); TOTAL BILIRUBIN 1.2 mg/dL (0.2-1.0); TOTAL PROTEIN 8.7 g/dL (6.4-8.2)
[2019-11-02] MEDS ORDERED: ACETAMINOPHEN 325 MG TABLET. PO PRN (14:45)
[2019-11-02] MEDS ORDERED: ONDANSETRON PF 4 MG/2 ML VIAL. IV PRN (14:45)
[2019-11-02 15:04] LABS: BASE EXCESS ABG 1 mmol/L (-3-3); HCO3 ABG 27 mmol/L (21-28); PCO2 ABG 46 mmHg (35-46); PO2 ABG 66 mmHg (65-108); SAT O2 ABG 91 % (92-99)
[2019-11-02 15:05] LABS: FIO2 ABG 21
--- NOTE | 2019-11-02 15:12 | RAD ---
INDICATION: Shortness of air COMPARISON: January 2017 FINDINGS: Single view of chest obtained. Cardiomediastinal silhouette is mildly prominent but could be from portable technique. Mild haziness at the left lung base. IMPRESSION: * Mild haziness at the left lung base. Could be secondary to a focus of atelectasis or infiltrate. Electronically signed by: Efraín Bergeron MD (11/02/2019 3:09 PM) [id number]
[2019-11-02] MEDS ORDERED: cefTRIAXone IV Push 1 GM VIAL. IVP ONE (15:30)
--- NOTE | 2019-11-02 15:44 | EKG ---
[facility] [address] [place] [address] Test Date: 2019-11-02 Test Time: 13:59:19 Pat Name: DEBRA KEYS Department: Room: [facility] Gender: F General Assistant: : 1960 Requested By: PRUDENCE LEWIS Order Number: [id number] Reading MD: Lul Herman Measurements Intervals [place] Rate: 86 P: 56 ND: 140 QRS: 38 QRSD: 90 T: 47 QT: 360 QTc: 433 Interpretive Statements SINUS RHYTHM NORMAL ECG Electronically Signed On 11-03-2019 20:15:22 CDT by Lul Herman
[2019-11-02] MEDS ORDERED: IPRATRPIUM/ALBUTEROL 0.5/2.5MG 3 ML NEBU. NEB SCH (16:00)
[2019-11-02] MEDS: AZITHROMYCIN 500 MG in IV NORMAL SALINE 250ML 250 ML IV SCH (16:36)
[2019-11-02 18:00] VITALS: BP 140/73
[2019-11-02] MEDS ORDERED: ALBUTEROL SULFATE 2.5 MG/3 ML NEBU. NEB PRN (18:00)
[2019-11-02] MEDS ORDERED: CETI10TA16 PO (18:19)
[2019-11-02] MEDS: methylPREDNISolone SOD SUCC PF 40 MG/ML VIAL. IV SCH (20:38)
[2019-11-02 23:00] VITALS: BP 143/82
[2019-11-03 03:00] VITALS: BP 126/80
[2019-11-03] MEDS: methylPREDNISolone SOD SUCC PF 40 MG/ML VIAL. IV SCH ×3 (05:16→20:22)
[2019-11-03 07:00] VITALS: BP 137/77
[2019-11-03 10:04] LABS: INFLUENZA A PATIENT NEGATIVE (NEGATIVE); INFLUENZA B PATIENT NEGATIVE (NEGATIVE)
[2019-11-03 11:16] VITALS: BP 137/77
--- NOTE | 2019-11-03 13:56 | CONS ---
DATE OF CONSULTATION: I was asked to see this 59-year-old lady for acute exacerbation of COPD. HISTORY OF PRESENT ILLNESS: She has a history of [id number] smoking, quit smoking in 2014. She has not felt well for the past 3-4 weeks. She has had increased shortness of breath and cough, did get treatment as an outpatient, but she felt not back to her baseline. She presented to the emergency room yesterday with increased shortness of breath, wheezing, cough. She is not able to bring up any sputum. She denies fever and chills. She feels much improved. PAST MEDICAL HISTORY: COPD, hypercholesterolemia, hypertension. ALLERGIES: No known drug allergies. MEDICATIONS: Currently, she is on Solu-Medrol 40 mg IV every 8 hours, azithromycin, Rocephin. SOCIAL HISTORY: History of [id number] smoking, quit smoking in 2014. FAMILY HISTORY: Hypertension. REVIEW OF SYSTEMS: As mentioned as above, other systems otherwise negative. PHYSICAL EXAMINATION: GENERAL: This is an overweight lady. VITAL SIGNS: Her O2 saturation is 92% on 2 liters of oxygen, respiratory rate 16, heart rate 82, blood pressure 137/77, temperature 97.4. HEENT: Overweight. Normocephalic, atraumatic. She appears comfortable. SKIN: There is no rash. LABORATORY DATA: I reviewed the following lab data: Chest x-ray shows density in the left lower lobe area. WBC 6, hemoglobin 15.2, platelet 221, ABG: pH 7.39, pCO2 of 46, pO2 of 66. Influenza A and B negative. COVID-19 pending. Troponin less than 0.01. BNP 18. Sodium 136, potassium 4.3, chloride 98, CO2 of 28, BUN 8, creatinine 0.7. Lactic acid 1. IMPRESSION: 1. Acute respiratory failure secondary to acute exacerbation of chronic obstructive pulmonary disease, acute bronchitis versus pneumonia. 2. Abnormal chest x-ray. 3. COVID-19, patient under investigation. 4. Acute exacerbation of chronic obstructive pulmonary disease. 5. Acute bronchitis versus pneumonia. 6. Ex-smoker. 7. Hypertension. PLAN AND RECOMMENDATIONS: 1. Titrate FiO2 to keep O2 saturation 92%. 2. Continue Rocephin and azithromycin. 3. When COVID-19 results are back and its negative, consider CT of the chest to have a better look at left lower lobe density/infiltrate. 4. Continue not smoking. 5. The findings and recommendations were discussed with the patient. Thank you very much for allowing me to participate in care of this very nice lady. LORENE AYOUB M.D. DR: Shereen JOB#: [id number] / [id number] FRAN
--- NOTE | 2019-11-03 14:32 | HP ---
ADMIT DATE: 11/02/2019 CHIEF COMPLAINT: Shortness of breath. HISTORY OF PRESENT ILLNESS: The patient is a pleasant 59-year-old female, who has chronic obstructive pulmonary disease. I think, she continues to smoke. She presented with shortness of breath that has been occurring for a couple of weeks, worse with moving, better sitting still. She increased her home medications, but that did not work. Chest x-ray shows left lower lobe pneumonia. I discussed the case with the emergency room physician. Clinically, it seems like she might have COVID-19 as well. We are admitting the patient to the COVID-19 Unit to rule out COVID-19. COVID-19 CRITERIA: The patient was evaluated during the global COVID-19 pandemic and that diagnosis was suspected/considered upon their initial presentation. Their evaluation, treatment, and testing were consistent with current guidelines for patients who present with complaints or symptoms that may be related to COVID-19. PAST MEDICAL/SURGICAL HISTORY: Asthma, chronic obstructive pulmonary disease, hypertension, hyperlipidemia, ovarian resection. ALLERGIES: None. FAMILY HISTORY: Hypertension. SOCIAL HISTORY: She states she quit smoking; no drinking or drugs. MEDICATIONS: Reviewed, please refer to the MRAD. REVIEW OF SYSTEMS: GENERAL: No history of weight change, weakness, or fever. SKIN: No bruising, hair changes, or rashes. EYES: No blurred, double, or loss of vision. NOSE AND THROAT: No history of nosebleeds, hoarseness, or sore throat. HEART: No history of palpitations, chest pain, or shortness of breath on exertion. LUNGS: She complains of shortness of breath. GASTROINTESTINAL: Denies changes in appetite, nausea, vomiting, diarrhea, or constipation. GENITOURINARY: No history of frequency, urgency, hesitancy, or nocturia. NEUROLOGIC: Denies history of numbness, tingling, tremor, or weakness. PSYCHIATRIC: No history of panic, anxiety, or depression. ENDOCRINE: No history of heat or cold intolerance, polyuria, or polydipsia. EXTREMITIES: Denies muscle weakness, joint pain, pain on walking, or stiffness. PHYSICAL EXAMINATION: VITALS: Within normal limits and are stable. GENERAL: No apparent distress; alert and oriented. HEENT: Normal cephalic, atraumatic. External auditory canals are patent. EYES: Extraocular muscles are intact. Pupils are equally round and reactive to light and accommodation. MUSCULOSKELETAL: Well developed, well nourished; good range of motion. ENDOCRINE: No thyromegaly was palpated. LYMPHATICS: No cervical chain or axillary nodes were noted. HEMATOPOIETIC: No bruising. NECK: Supple, no JVD, no thyromegaly was noted. LUNGS: She has decreased breath sounds. HEART: RRR, S1, S2 present. Peripheral pulses intact. No obvious murmurs were noted. ABDOMEN: Soft, nontender. Positive bowel sounds. No organomegaly, normal bowel sounds. EXTREMITIES: Without any cyanosis, clubbing, or edema. Pedal pulses intact. Homans sign is negative. NEUROLOGIC: Normal speech, normal tone, A and O x3, moves all extremities, no obvious focal deficits. PSYCHIATRIC: Normal affect, normal mood, stable. SKIN: No ulcerations or rashes, good skin turgor, no jaundice. VASCULAR: Good capillary refill. Neurovascular bundle appears to be intact. LABORATORY DATA: Hematology is normal. Electrolytes are normal. Troponin is 0. Flu testing is negative. ABG shows pH of 7.39, pCO2 46, pO2 66, and bicarbonate 27 with 91% saturation on room air. IMAGING: Chest x-ray shows left lower lobe pneumonia. ASSESSMENT: Respiratory failure with hypoxia and pneumonia, possible COVID-19. COVID-19 CRITERIA: The patient was evaluated during the global COVID-19 pandemic and that diagnosis was suspected/considered upon their initial presentation. Their evaluation, treatment, and testing were consistent with current guidelines for patients who present with complaints or symptoms that may be related to COVID-19. PLAN: DuoNeb, oxygen, steroids, home medications, consult Pulmonary, deep vein thrombosis prophylaxis, full code, COVID testing. PROGNOSIS: Guarded. TOTAL TIME: 31 minutes. AVINASH ALEX DO DR: RUFINO/crystal JOB#: [id number] / [id number]
[2019-11-03 15:00] VITALS: BP 144/80
[2019-11-03] MEDS: AZITHROMYCIN 500 MG in IV NORMAL SALINE 250ML 250 ML IV SCH (17:14)
[2019-11-03 19:00] VITALS: BP 146/86
[2019-11-03] MEDS: LACTOBACILLUS RHAMNOSUS GG 1 CAPSULE. PO SCH (20:22)
[2019-11-03] MEDS: SIMVASTATIN 40 MG TABLET. PO SCH (20:22)
[2019-11-03] MEDS ORDERED: LISINOPRIL 20 MG TABLET PO ONE (21:00)
[2019-11-03 23:00] VITALS: BP 121/67
[2019-11-04] VITALS (7 sets, daily range): BP systolic 125–152; BP diastolic 62–82
[2019-11-04] MEDS: methylPREDNISolone SOD SUCC PF 40 MG/ML VIAL. IV SCH ×3 (05:20→22:11)
[2019-11-04] MEDS ORDERED: LISINOPRIL 20 MG TABLET PO SCH ×2 (09:00→21:00)
--- NOTE | 2019-11-04 09:29 | PDOC ---
PULMONARY PROGRESS NOTES Subjective Patient not more short of air. Vitals Vital Signs Date Time Temp Pulse Resp B/P (MAP) Pulse Ox O2 Delivery O2 Flow Rate FiO2 11/04/19 07:00 96.3 76 18 135/62 (86) 93 96.3 11/03/19 19:35 Room Air 11/03/19 15:00 2.0 General: Alert, No acute distress Lungs: Clear, Other Cardiovascular: S1 Abdomen: Soft, Non-tender Extremities: No Edema Labs Laboratory Tests Test 11/02/19 14:15 11/02/19 14:45 11/02/19 17:45 11/02/19 20:42 White Blood Count 6.0 x10^3/uL (4.0-11.0) Red Blood Count 4.36 x10^6/uL (3.50-5.40) Hemoglobin 15.2 g/dL (12.0-15.5) Hematocrit 44.9 % (36.0-47.0) Mean Corpuscular Volume 103 fL (79-100) Mean Corpuscular Hemoglobin 35 pg (25-35) Mean Corpuscular Hemoglobin Concent 34 g/dL (31-37) Red Cell Distribution Width 13.1 % (11.5-14.5) Platelet Count 221 x10^3/uL (140-400) Neutrophils (%) (Auto) 60 % (31-73) Lymphocytes (%) (Auto) 23 % (24-48) Monocytes (%) (Auto) 9 % (0-9) Eosinophils (%) (Auto) 7 % (0-3) Basophils (%) (Auto) 1 % (0-3) Neutrophils # (Auto) 3.6 x10^3/uL (1.8-7.7) Lymphocytes # (Auto) 1.4 x10^3/uL (1.0-4.8) Monocytes # (Auto) 0.5 x10^3/uL (0.0-1.1) Eosinophils # (Auto) 0.4 x10^3/uL (0.0-0.7) Basophils # (Auto) 0.1 x10^3/uL (0.0-0.2) Sodium Level 136 mmol/L (136-145) Potassium Level 4.3 mmol/L (3.5-5.1) Chloride Level 98 mmol/L (98-107) Carbon Dioxide Level 28 mmol/L (21-32) Anion Gap 10 (6-14) Blood Urea Nitrogen 8 mg/dL (7-20) Creatinine 0.7 mg/dL (0.6-1.0) Estimated GFR (Cockcroft-Gault) 85.1 BUN/Creatinine Ratio 11 (6-20) Glucose Level 109 mg/dL (70-99) Lactic Acid Level 1.0 mmol/L (0.4-2.0) Calcium Level 9.3 mg/dL (8.5-10.1) Total Bilirubin 1.2 mg/dL (0.2-1.0) Aspartate Amino Transf (AST/SGOT) 74 U/L (15-37) Alanine Aminotransferase (ALT/SGPT) 77 U/L (14-59) Alkaline Phosphatase 121 U/L (46-116) Troponin I Quantitative < 0.017 ng/mL (0.000-0.055) < 0.017 ng/mL (0.000-0.055) < 0.017 ng/mL (0.000-0.055) SM-Rhx-X-Type Natriuretic Peptide 18 pg/mL (0-124) Total Protein 8.7 g/dL (6.4-8.2) Albumin 3.2 g/dL (3.4-5.0) Albumin/Globulin Ratio 0.6 (1.0-1.7) O2 Saturation 91 % (92-99) Arterial Blood pH 7.39 (7.35-7.45) Arterial Blood pCO2 at Patient Temp 46 mmHg (35-46) Arterial Blood pO2 at Patient Temp 66 mmHg (65-108) Arterial Blood HCO3 27 mmol/L (21-28) Arterial Blood Base Excess 1 mmol/L (-3-3) FiO2 21 Test 11/03/19 09:30 Influenza Type A Antigen Negative (NEGATIVE) Influenza Type B Antigen Negative (NEGATIVE) Laboratory Tests Test 11/03/19 09:30 Influenza Type A Antigen Negative (NEGATIVE) Influenza Type B Antigen Negative (NEGATIVE) Medications Active Scripts Medications Dose Route/Sig Max Daily Dose Days Date Category Cetirizine Hcl 10 Mg Tablet 1 Tab PO DAILY 11/02/19 Reported Albuterol Sulfate Conc Neb Soln (Albuterol Sulfate) 2.5 Mg/0.5 Ml Vial.neb 1 Vial NEB Q4HRS 10/11/19 Rx Simvastatin 40 Mg Tablet 40 Mg PO HS 01/12/17 Reported Aspir 81 (Aspirin) 81 Mg Tablet.dr 1 Tab PO DAILY 10/15/14 Reported Lisinopril 40 Mg Tablet 1 Tab PO DAILY 10/15/14 Reported Impression . IMPRESSION: 1. Acute respiratory failure secondary to acute exacerbation of chronic obstructive pulmonary disease 2. Abnormal chest x-ray. 3. COVID-19, patient under investigation. 4. Acute exacerbation of chronic obstructive pulmonary disease. 5. Acute bronchitis versus pneumonia. 6. Ex-smoker. 7. Hypertension. Plan . Follow-up on SARS-CoV-2 Continue Rocephin and Zithromax Contact and droplet isolation O2 sats sats maintained above 92% KEARA HERNANDEZ MD Nov 04, 2019 09:29
[2019-11-04] MEDS: CETIRIZINE HCL 10 MG TABLET. PO SCH (10:28)
[2019-11-04] MEDS: LACTOBACILLUS RHAMNOSUS GG 1 CAPSULE. PO SCH ×2 (10:28→21:05)
[2019-11-04] MEDS: ASPIRIN ENTERIC COATED 81 MG TABLET.DR. PO SCH (10:28)
--- NOTE | 2019-11-04 11:34 | PDOC ---
PROGRESS NOTES Chief Complaint Chief Complaint Acute respiratory failure secondary to acute exacerbation of chronic obstructive pulmonary disease, acute bronchitis versus pneumonia. Left lower lobe abnormality on CXR COVID-19 suspected Acute exacerbation of chronic obstructive pulmonary disease. Acute bronchitis versus pneumonia. Ex-smoker. Hypertension. History of Present Illness History of Present Illness Ms Meraz is a 59yo F w/ PMHx [id number] smoking, quit smoking in 2015, COPD, HLD, HTN who presented to ED for increased SOB and cough. She has not felt well for the past 3-4 weeks. She is not able to bring up any sputum. She denies fever and chills. She feels much improved. No recent travel or COVID contacts. Admitted requiring O2 initially, pulmonology consulted. Started on Solu-Medrol 40 mg IV every 8 hours,azithromycin, Rocephin. Chest x- ray shows density in the left lower lobe area. WBC 6, hemoglobin 15.2, platelet 221, ABG: pH 7.39, pCO2 of 46, pO2 of 66. Influenza A and B negative. COVID- 19 pending. Troponin less than 0.01. BNP 18. Sodium 136, potassium 4.3, chloride 98, CO2 of 28, BUN 8, creatinine 0.7. Lactic acid 1. Overnight feeling improved. Off O2 currently. Still with significant cough and wheezing. Not able to move to bathroom without assistance. Vitals Vitals Vital Signs Date Time Temp Pulse Resp B/P (MAP) Pulse Ox O2 Delivery O2 Flow Rate FiO2 11/04/19 08:00 Room Air 11/04/19 07:00 96.3 76 18 135/62 (86) 93 96.3 11/03/19 15:00 2.0 Physical Exam General: Alert, Oriented X3, Cooperative Heart: Regular rate, Normal S1, Normal S2 Lungs: Wheezing, Other Abdomen: Normal bowel sounds, Soft Extremities: No clubbing, No cyanosis Skin: No rashes, No breakdown Assessment and Plan Assessmemt and Plan Problems Medical Problems: (1) COPD exacerbation Status: Acute Comment Review of Relevant I have reviewed the following items bryant (where applicable) has been applied. Labs Laboratory Tests Test 11/02/19 14:15 11/02/19 14:45 11/02/19 17:45 11/02/19 20:42 White Blood Count 6.0 x10^3/uL (4.0-11.0) Red Blood Count 4.36 x10^6/uL (3.50-5.40) Hemoglobin 15.2 g/dL (12.0-15.5) Hematocrit 44.9 % (36.0-47.0) Mean Corpuscular Volume 103 fL (79-100) Mean Corpuscular Hemoglobin 35 pg (25-35) Mean Corpuscular Hemoglobin Concent 34 g/dL (31-37) Red Cell Distribution Width 13.1 % (11.5-14.5) Platelet Count 221 x10^3/uL (140-400) Neutrophils (%) (Auto) 60 % (31-73) Lymphocytes (%) (Auto) 23 % (24-48) Monocytes (%) (Auto) 9 % (0-9) Eosinophils (%) (Auto) 7 % (0-3) Basophils (%) (Auto) 1 % (0-3) Neutrophils # (Auto) 3.6 x10^3/uL (1.8-7.7) Lymphocytes # (Auto) 1.4 x10^3/uL (1.0-4.8) Monocytes # (Auto) 0.5 x10^3/uL (0.0-1.1) Eosinophils # (Auto) 0.4 x10^3/uL (0.0-0.7) Basophils # (Auto) 0.1 x10^3/uL (0.0-0.2) Sodium Level 136 mmol/L (136-145) Potassium Level 4.3 mmol/L (3.5-5.1) Chloride Level 98 mmol/L (98-107) Carbon Dioxide Level 28 mmol/L (21-32) Anion Gap 10 (6-14) Blood Urea Nitrogen 8 mg/dL (7-20) Creatinine 0.7 mg/dL (0.6-1.0) Estimated GFR (Cockcroft-Gault) 85.1 BUN/Creatinine Ratio 11 (6-20) Glucose Level 109 mg/dL (70-99) Lactic Acid Level 1.0 mmol/L (0.4-2.0) Calcium Level 9.3 mg/dL (8.5-10.1) Total Bilirubin 1.2 mg/dL (0.2-1.0) Aspartate Amino Transf (AST/SGOT) 74 U/L (15-37) Alanine Aminotransferase (ALT/SGPT) 77 U/L (14-59) Alkaline Phosphatase 121 U/L (46-116) Troponin I Quantitative < 0.017 ng/mL (0.000-0.055) < 0.017 ng/mL (0.000-0.055) < 0.017 ng/mL (0.000-0.055) SZ-Smd-D-Type Natriuretic Peptide 18 pg/mL (0-124) Total Protein 8.7 g/dL (6.4-8.2) Albumin 3.2 g/dL (3.4-5.0) Albumin/Globulin Ratio 0.6 (1.0-1.7) O2 Saturation 91 % (92-99) Arterial Blood pH 7.39 (7.35-7.45) Arterial Blood pCO2 at Patient Temp 46 mmHg (35-46) Arterial Blood pO2 at Patient Temp 66 mmHg (65-108) Arterial Blood HCO3 27 mmol/L (21-28) Arterial Blood Base Excess 1 mmol/L (-3-3) FiO2 21 Test 11/03/19 09:30 Influenza Type A Antigen Negative (NEGATIVE) Influenza Type B Antigen Negative (NEGATIVE) Microbiology 11/02/19 Blood Culture - Preliminary, Resulted NO GROWTH AFTER 1 DAY Medications Current Medications Albuterol/ Ipratropium (Duoneb) 3 ml 1X ONCE NEB Last administered on 11/02/19at 14:42; Start 11/02/19 at 14:15; Stop 11/02/19 at 14:16; Status DC Methylprednisolone Sodium Succinate (SOLU-Medrol 125MG VIAL) 125 mg 1X ONCE IV Last administered on 11/02/19at 14:29; Start 11/02/19 at 14:15; Stop 11/02/19 at 14:16; Status DC Albuterol Sulfate (Ventolin Neb Soln) 5 mg 1X ONCE NEB Last administered on 11/02/19at 14:43; Start 11/02/19 at 14:15; Stop 11/02/19 at 14:16; Status DC Ondansetron HCl (Zofran) 4 mg PRN Q8HRS PRN IV NAUSEA/VOMITING; Start 11/02/19 at 14:45; Stop 11/03/19 at 14:44; Status DC Acetaminophen (Tylenol) 650 mg PRN Q4HRS PRN PO FEVER > 100.3'F; Start 11/02/19 at 14:45; Stop 11/03/19 at 14:44; Status DC Albuterol/ Ipratropium (Duoneb) 3 ml RTQID NEB ; Start 11/02/19 at 16:00; Stop 11/02/19 at 17:52; Status DC Methylprednisolone Sodium Succinate (SOLU-Medrol 40MG VIAL) 40 mg Q8HRS IV Last administered on 11/04/19at 05:20; Start 11/02/19 at 22:00 Ceftriaxone Sodium (Rocephin) 1 gm 1X ONCE IVP Last administered on 11/02/19at 16:33; Start 11/02/19 at 15:30; Stop 11/02/19 at 15:31; Status DC Azithromycin 500 mg/Sodium Chloride 250 ml @ 250 mls/hr Q24H IV Last administered on 11/03/19at 17:14; Start 11/02/19 at 16:00 Albuterol Sulfate (Ventolin Neb Soln) 2.5 mg PRN Q6HRS PRN NEB SHORTNESS OF BREATH; Start 11/02/19 at 18:00; Stop 11/03/19 at 17:59; Status DC Lactobacillus Rhamnosus (Culturelle) 1 cap BID PO Last administered on 11/04/19at 10:28; Start 11/03/19 at 21:00 Aspirin (Ecotrin) 81 mg DAILY PO Last administered on 11/04/19at 10:28; Start 11/04/19 at 09:00 Cetirizine HCl (ZyrTEC) 10 mg DAILY PO Last administered on 11/04/19at 10:28; Start 11/04/19 at 09:00 Lisinopril (Prinivil) 40 mg DAILY PO ; Start 11/04/19 at 09:00; Stop 11/04/19 at 11:03; Status DC Simvastatin (Zocor) 40 mg HS PO Last administered on 11/03/19at 20:22; Start 11/03/19 at 21:00 Lisinopril (Prinivil) 40 mg 1X ONCE PO Last administered on 11/03/19at 20:55; Start 11/03/19 at 21:00; Stop 11/03/19 at 21:01; Status DC Lisinopril (Prinivil) 40 mg HS PO ; Start 11/04/19 at 21:00 Active Scripts Active Albuterol Sulfate Conc Neb Soln (Albuterol Sulfate) 2.5 Mg/0.5 Ml Vial.neb 1 Vial NEB Q4HRS Reported Cetirizine Hcl 10 Mg Tablet 1 Tab PO DAILY Simvastatin 40 Mg Tablet 40 Mg PO HS Aspir 81 (Aspirin) 81 Mg Tablet. 1 Tab PO DAILY Lisinopril 40 Mg Tablet 1 Tab PO DAILY Vitals/I & O Vital Sign - Last 24 Hours 11/03/19 11/03/19 11/03/19 11/03/19 15:00 19:00 19:35 20:55 Temp 96.4 97.1 96.4 97.1 Pulse 87 80 80 Resp 16 20 B/P (MAP) 144/80 (101) 146/86 (106) 146/86 O2 Delivery Nasal Cannula Room Air Room Air O2 Flow Rate 2.0 11/03/19 11/04/19 11/04/19 11/04/19 23:00 03:00 07:00 08:00 Temp 97.5 97.1 96.3 97.5 97.1 96.3 Pulse 87 81 76 Resp 20 18 18 B/P (MAP) 121/67 (85) 131/76 (94) 135/62 (86) Pulse Ox 95 91 93 O2 Delivery Room Air Intake and Output 11/03/19 11/03/19 11/04/19 15:00 23:00 07:00 Intake Total 240 ml 600 ml Balance 240 ml 600 ml YOHANA PERKINS MD Nov 04, 2019 11:34
--- NOTE | 2019-11-04 12:03 | NUR ---
SS following for discharge planning. SS reviewed pt chart and discussed with pt RN. Pt is from home with spouse and is currently on room air. COVID19 test pending. SS will continue to follow for discharge planning.
[2019-11-04] MEDS: AZITHROMYCIN 500 MG in IV NORMAL SALINE 250ML 250 ML IV SCH (16:50)
[2019-11-04] MEDS: SIMVASTATIN 40 MG TABLET. PO SCH (21:06)
[2019-11-05 03:33] VITALS: BP 98/57
[2019-11-05 05:10] LABS: ALBUMIN 2.6 g/dL (3.4-5.0); ALBUMIN/GLOBULIN RATIO 0.6 (1.0-1.7); CALCIUM 8.8 mg/dL (8.5-10.1); CREATININE 0.8 mg/dL (0.6-1.0); GFR 72.9; POTASSIUM 3.8 mmol/L (3.5-5.1); TOTAL BILIRUBIN 0.7 mg/dL (0.2-1.0); TOTAL PROTEIN 7.3 g/dL (6.4-8.2)
[2019-11-05] MEDS: methylPREDNISolone SOD SUCC PF 40 MG/ML VIAL. IV SCH (06:01)
[2019-11-05 07:10] VITALS: BP 119/67
[2019-11-05] MEDS: CETIRIZINE HCL 10 MG TABLET. PO SCH (09:04)
[2019-11-05] MEDS: LACTOBACILLUS RHAMNOSUS GG 1 CAPSULE. PO SCH (09:04)
[2019-11-05] MEDS: ASPIRIN ENTERIC COATED 81 MG TABLET.DR. PO SCH (09:04)
--- NOTE | 2019-11-05 09:24 | PDOC ---
PROGRESS NOTES Chief Complaint Chief Complaint Acute respiratory failure secondary to acute exacerbation of chronic obstructive pulmonary disease, acute bronchitis versus pneumonia. Left lower lobe abnormality on CXR COVID-19 suspected Acute exacerbation of chronic obstructive pulmonary disease. Acute bronchitis versus pneumonia. Ex-smoker. Hypertension. Macrocytosis Transaminitis History of Present Illness History of Present Illness Ms Meraz is a 59yo F w/ PMHx [id number] smoking, quit smoking in 2015, COPD, HLD, HTN who presented to ED for increased SOB and cough. She has not felt well for the past 3-4 weeks. She is not able to bring up any sputum. She denies fever and chills. She feels much improved. No recent travel or COVID contacts. Admitted requiring O2 initially, pulmonology consulted. Started on Solu-Medrol 40 mg IV every 8 hours,azithromycin, Rocephin. Chest x- ray shows density in the left lower lobe area. WBC 6, hemoglobin 15.2, platelet 221, ABG: pH 7.39, pCO2 of 46, pO2 of 66. Influenza A and B negative. COVID- 19 pending. Troponin less than 0.01. BNP 18. Sodium 136, potassium 4.3, chloride 98, CO2 of 28, BUN 8, creatinine 0.7. Lactic acid 1. 11/03: Overnight feeling improved. Off O2 currently. Still with significant cough and wheezing. Not able to move to bathroom without assistance. Afebrile overnight. Off O2. Glucose elevated. On po prednisone and doxycycline Vitals Vitals Vital Signs Date Time Temp Pulse Resp B/P (MAP) Pulse Ox O2 Delivery O2 Flow Rate FiO2 11/05/19 07:10 96.6 71 16 119/67 (84) Room Air 96.6 11/05/19 03:33 94 Physical Exam General: Alert, Oriented X3, Cooperative Heart: Regular rate, Normal S1, Normal S2 Lungs: Clear, Other Abdomen: Normal bowel sounds, Soft Extremities: No clubbing, No cyanosis Skin: No rashes, No breakdown Labs LABS Laboratory Tests Test 11/05/19 03:40 Sodium Level 135 mmol/L (136-145) Potassium Level 3.8 mmol/L (3.5-5.1) Chloride Level 102 mmol/L (98-107) Carbon Dioxide Level 26 mmol/L (21-32) Anion Gap 7 (6-14) Blood Urea Nitrogen 14 mg/dL (7-20) Creatinine 0.8 mg/dL (0.6-1.0) Estimated GFR (Cockcroft-Gault) 72.9 BUN/Creatinine Ratio 18 (6-20) Glucose Level 176 mg/dL (70-99) Calcium Level 8.8 mg/dL (8.5-10.1) Total Bilirubin 0.7 mg/dL (0.2-1.0) Aspartate Amino Transf (AST/SGOT) 39 U/L (15-37) Alanine Aminotransferase (ALT/SGPT) 64 U/L (14-59) Alkaline Phosphatase 98 U/L (46-116) Total Protein 7.3 g/dL (6.4-8.2) Albumin 2.6 g/dL (3.4-5.0) Albumin/Globulin Ratio 0.6 (1.0-1.7) Vitamin B12 Level 365 pg/mL (247-911) Assessment and Plan Assessmemt and Plan Problems Medical Problems: (1) COPD exacerbation Status: Acute Comment Review of Relevant I have reviewed the following items bryant (where applicable) has been applied. Labs Laboratory Tests Test 11/03/19 09:30 11/05/19 03:40 Influenza Type A Antigen Negative (NEGATIVE) Influenza Type B Antigen Negative (NEGATIVE) Sodium Level 135 mmol/L (136-145) Potassium Level 3.8 mmol/L (3.5-5.1) Chloride Level 102 mmol/L (98-107) Carbon Dioxide Level 26 mmol/L (21-32) Anion Gap 7 (6-14) Blood Urea Nitrogen 14 mg/dL (7-20) Creatinine 0.8 mg/dL (0.6-1.0) Estimated GFR (Cockcroft-Gault) 72.9 BUN/Creatinine Ratio 18 (6-20) Glucose Level 176 mg/dL (70-99) Calcium Level 8.8 mg/dL (8.5-10.1) Total Bilirubin 0.7 mg/dL (0.2-1.0) Aspartate Amino Transf (AST/SGOT) 39 U/L (15-37) Alanine Aminotransferase (ALT/SGPT) 64 U/L (14-59) Alkaline Phosphatase 98 U/L (46-116) Total Protein 7.3 g/dL (6.4-8.2) Albumin 2.6 g/dL (3.4-5.0) Albumin/Globulin Ratio 0.6 (1.0-1.7) Vitamin B12 Level 365 pg/mL (247-911) Laboratory Tests Test 11/05/19 03:40 Sodium Level 135 mmol/L (136-145) Potassium Level 3.8 mmol/L (3.5-5.1) Chloride Level 102 mmol/L (98-107) Carbon Dioxide Level 26 mmol/L (21-32) Anion Gap 7 (6-14) Blood Urea Nitrogen 14 mg/dL (7-20) Creatinine 0.8 mg/dL (0.6-1.0) Estimated GFR (Cockcroft-Gault) 72.9 BUN/Creatinine Ratio 18 (6-20) Glucose Level 176 mg/dL (70-99) Calcium Level 8.8 mg/dL (8.5-10.1) Total Bilirubin 0.7 mg/dL (0.2-1.0) Aspartate Amino Transf (AST/SGOT) 39 U/L (15-37) Alanine Aminotransferase (ALT/SGPT) 64 U/L (14-59) Alkaline Phosphatase 98 U/L (46-116) Total Protein 7.3 g/dL (6.4-8.2) Albumin 2.6 g/dL (3.4-5.0) Albumin/Globulin Ratio 0.6 (1.0-1.7) Vitamin B12 Level 365 pg/mL (247-911) Microbiology 11/02/19 Blood Culture - Preliminary, Resulted NO GROWTH AFTER 2 DAYS Medications Current Medications Albuterol/ Ipratropium (Duoneb) 3 ml 1X ONCE NEB Last administered on at 14:42; Start 11/02/19 at 14:15; Stop 11/02/19 at 14:16; Status DC Methylprednisolone Sodium Succinate (SOLU-Medrol 125MG VIAL) 125 mg 1X ONCE IV Last administered on 11/02/19at 14:29; Start 11/02/19 at 14:15; Stop 11/02/19 at 14:16; Status DC Albuterol Sulfate (Ventolin Neb Soln) 5 mg 1X ONCE NEB Last administered on 11/02/19at 14:43; Start 11/02/19 at 14:15; Stop 11/02/19 at 14:16; Status DC Ondansetron HCl (Zofran) 4 mg PRN Q8HRS PRN IV NAUSEA/VOMITING; Start 11/02/19 at 14:45; Stop 11/03/19 at 14:44; Status DC Acetaminophen (Tylenol) 650 mg PRN Q4HRS PRN PO FEVER > 100.3'F; Start 11/02/19 at 14:45; Stop 11/03/19 at 14:44; Status DC Albuterol/ Ipratropium (Duoneb) 3 ml RTQID NEB ; Start 11/02/19 at 16:00; Stop 11/02/19 at 17:52; Status DC Methylprednisolone Sodium Succinate (SOLU-Medrol 40MG VIAL) 40 mg Q8HRS IV Last administered on 11/05/19at 06:01; Start 11/02/19 at 22:00 Ceftriaxone Sodium (Rocephin) 1 gm 1X ONCE IVP Last administered on 11/02/19at 16:33; Start 11/02/19 at 15:30; Stop 11/02/19 at 15:31; Status DC Azithromycin 500 mg/Sodium Chloride 250 ml @ 250 mls/hr Q24H IV Last administered on 11/04/19at 16:50; Start 11/02/19 at 16:00 Albuterol Sulfate (Ventolin Neb Soln) 2.5 mg PRN Q6HRS PRN NEB SHORTNESS OF BREATH; Start 11/02/19 at 18:00; Stop 11/03/19 at 17:59; Status DC Lactobacillus Rhamnosus (Culturelle) 1 cap BID PO Last administered on 11/05/19a t 09:04; Start 11/03/19 at 21:00 Aspirin (Ecotrin) 81 mg DAILY PO Last administered on 11/05/19at 09:04; Start 11/04/19 at 09:00 Cetirizine HCl (ZyrTEC) 10 mg DAILY PO Last administered on 11/05/19at 09:04; Start 11/04/19 at 09:00 Lisinopril (Prinivil) 40 mg DAILY PO ; Start 11/04/19 at 09:00; Stop 11/04/19 at 11:03; Status DC Simvastatin (Zocor) 40 mg HS PO Last administered on 11/04/19at 21:06; Start 11/03/19 at 21:00 Lisinopril (Prinivil) 40 mg 1X ONCE PO Last administered on 11/03/19at 20:55; Start 11/03/19 at 21:00; Stop 11/03/19 at 21:01; Status DC Lisinopril (Prinivil) 40 mg HS PO Last administered on 11/04/19at 21:07; Start 11/04/19 at 21:00 Active Scripts Active Albuterol Sulfate Conc Neb Soln (Albuterol Sulfate) 2.5 Mg/0.5 Ml Vial.neb 1 Vial NEB Q4HRS Reported Cetirizine Hcl 10 Mg Tablet 1 Tab PO DAILY Simvastatin 40 Mg Tablet 40 Mg PO HS Aspir 81 (Aspirin) 81 Mg Tablet. 1 Tab PO DAILY Lisinopril 40 Mg Tablet 1 Tab PO DAILY Vitals/I & O Vital Sign - Last 24 Hours 11/04/19 11/04/19 11/04/19 11/04/19 11:59 15:09 19:00 19:30 Temp 96.2 96.3 96.6 96.2 96.3 96.6 Pulse 82 89 88 Resp 18 18 B/P (MAP) 136/70 (92) 149/73 (98) 152/75 (100) Pulse Ox 91 92 92 O2 Delivery Room Air Room Air 11/04/19 11/04/19 11/04/19 11/05/19 21:00 21:07 22:47 03:33 Temp 96.8 96.8 96.8 96.8 Pulse 70 70 77 71 Resp 20 18 B/P (MAP) 131/82 (98) 131/82 125/69 (87) 98/57 (71) Pulse Ox 93 94 O2 Delivery Room Air Room Air 11/05/19 07:10 Temp 96.6 96.6 Pulse 71 Resp 16 B/P (MAP) 119/67 (84) O2 Delivery Room Air Intake and Output 11/04/19 11/04/19 11/05/19 15:00 23:00 07:00 Intake Total 540 ml 200 ml 340 ml Balance 540 ml 200 ml 340 ml YOHANA PERKINS MD Nov 05, 2019 09:24
[2019-11-05] MEDS ORDERED: DEXTROSE 50% 25 GM / 50ML DISP.SYRIN. IV PRN (09:30)
--- NOTE | 2019-11-05 09:42 | NUR ---
pg to Dr. Mendez RE negative covid. no need for repeat swab at this time, per Dr. Mendez.
--- NOTE | 2019-11-05 09:51 | NUR ---
IP: Pt is COVID negative.
[2019-11-05] MEDS ORDERED: CYANOCOBALAMIN (VITAMIN B-12) 1,000 MCG/ML VIAL IM ONE (10:00)
[2019-11-05 11:00] VITALS: BP 127/71
[2019-11-05] MEDS ORDERED: predniSONE 20 MG TABLET PO SCH (11:00)
[2019-11-05] MEDS ORDERED: DOXYCYCLINE HYCLATE 100 MG TABLET PO SCH (11:00)
--- NOTE | 2019-11-05 11:05 | PDOC ---
PULMONARY PROGRESS NOTES Subjective Patient not more short of air. Vitals Vital Signs Date Time Temp Pulse Resp B/P (MAP) Pulse Ox O2 Delivery O2 Flow Rate FiO2 11/05/19 08:00 Room Air 11/05/19 07:10 96.6 71 16 119/67 (84) 96.6 11/05/19 03:33 94 General: Alert, No acute distress Lungs: Clear, Other Cardiovascular: S1 Abdomen: Soft, Non-tender Extremities: No Edema Labs Laboratory Tests Test 11/05/19 03:40 Sodium Level 135 mmol/L (136-145) Potassium Level 3.8 mmol/L (3.5-5.1) Chloride Level 102 mmol/L (98-107) Carbon Dioxide Level 26 mmol/L (21-32) Anion Gap 7 (6-14) Blood Urea Nitrogen 14 mg/dL (7-20) Creatinine 0.8 mg/dL (0.6-1.0) Estimated GFR (Cockcroft-Gault) 72.9 BUN/Creatinine Ratio 18 (6-20) Glucose Level 176 mg/dL (70-99) Calcium Level 8.8 mg/dL (8.5-10.1) Total Bilirubin 0.7 mg/dL (0.2-1.0) Aspartate Amino Transf (AST/SGOT) 39 U/L (15-37) Alanine Aminotransferase (ALT/SGPT) 64 U/L (14-59) Alkaline Phosphatase 98 U/L (46-116) Total Protein 7.3 g/dL (6.4-8.2) Albumin 2.6 g/dL (3.4-5.0) Albumin/Globulin Ratio 0.6 (1.0-1.7) Vitamin B12 Level 365 pg/mL (247-911) Laboratory Tests Test 11/05/19 03:40 Sodium Level 135 mmol/L (136-145) Potassium Level 3.8 mmol/L (3.5-5.1) Chloride Level 102 mmol/L (98-107) Carbon Dioxide Level 26 mmol/L (21-32) Anion Gap 7 (6-14) Blood Urea Nitrogen 14 mg/dL (7-20) Creatinine 0.8 mg/dL (0.6-1.0) Estimated GFR (Cockcroft-Gault) 72.9 BUN/Creatinine Ratio 18 (6-20) Glucose Level 176 mg/dL (70-99) Calcium Level 8.8 mg/dL (8.5-10.1) Total Bilirubin 0.7 mg/dL (0.2-1.0) Aspartate Amino Transf (AST/SGOT) 39 U/L (15-37) Alanine Aminotransferase (ALT/SGPT) 64 U/L (14-59) Alkaline Phosphatase 98 U/L (46-116) Total Protein 7.3 g/dL (6.4-8.2) Albumin 2.6 g/dL (3.4-5.0) Albumin/Globulin Ratio 0.6 (1.0-1.7) Vitamin B12 Level 365 pg/mL (247-911) Medications Active Scripts Medications Dose Route/Sig Max Daily Dose Days Date Category Cetirizine Hcl 10 Mg Tablet 1 Tab PO DAILY 11/02/19 Reported Albuterol Sulfate Conc Neb Soln (Albuterol Sulfate) 2.5 Mg/0.5 Ml Vial.neb 1 Vial NEB Q4HRS 10/11/19 Rx Simvastatin 40 Mg Tablet 40 Mg PO HS 01/12/17 Reported Aspir 81 (Aspirin) 81 Mg Tablet.dr 1 Tab PO DAILY 10/15/14 Reported Lisinopril 40 Mg Tablet 1 Tab PO DAILY 10/15/14 Reported Impression . IMPRESSION: 1. Acute respiratory failure secondary to acute exacerbation of chronic obstructive pulmonary disease 2. Abnormal chest x-ray. mild left base haziness, could be atelectasis 3. COVID-19,neg 4. Acute exacerbation of chronic obstructive pulmonary disease. 5. Acute bronchitis versus pneumonia. 6. Ex-smoker. 7. Hypertension. Plan . Follow-up on SARS-CoV-2/ Neg Continue Rocephin and Zithromax dc isolation PO Steroids O2 sats sats maintained above 92% dc home in 24 hrs or today ARA LUI MD Nov 05, 2019 11:05
[2019-11-05] MEDS ORDERED: INSULIN LISPRO 300 UNITS/3 ML VIAL. SQ SCH (11:30)
--- NOTE | 2019-11-05 11:44 | NUR ---
SS following up with discharge planning. SS discussed with pt RN. Pt is currently on room air. No PT/OT needs. Pt will discharge to home with spouse. SS will continue to follow for discharge planning.
[2019-11-05] MEDS ORDERED: MONT10TA49 PO (12:35)
[2019-11-05] MEDS ORDERED: DOXY100T PO (12:35)
[2019-11-05] MEDS ORDERED: PRED20TA PO (12:35)
[2019-11-05] MEDS ORDERED: METF500T16 PO (12:35)
--- NOTE | 2019-11-05 12:40 | PDOC3 ---
Discharge Summary Visit Information Date of Admission: Nov 02, 2019 Date of Discharge: Nov 05, 2019 Admitting Diagnosis: Acute COPD exacerbation, suspected COVID 19 Final Diagnosis Problems Medical Problems: (1) COPD exacerbation Status: Acute Brief Hospital Course Allergies Allergies Coded Allergies Type Severity Reaction Last Updated Verified No Known Drug Allergies 10/15/14 No Vital Signs Vital Signs Date Time Temp Pulse Resp B/P (MAP) Pulse Ox O2 Delivery O2 Flow Rate FiO2 11/05/19 11:00 96.7 68 16 127/71 (89) Room Air 96.7 11/05/19 03:33 94 Lab Results Laboratory Tests Test 11/05/19 03:40 11/05/19 11:10 Sodium Level 135 mmol/L (136-145) Potassium Level 3.8 mmol/L (3.5-5.1) Chloride Level 102 mmol/L (98-107) Carbon Dioxide Level 26 mmol/L (21-32) Anion Gap 7 (6-14) Blood Urea Nitrogen 14 mg/dL (7-20) Creatinine 0.8 mg/dL (0.6-1.0) Estimated GFR (Cockcroft-Gault) 72.9 BUN/Creatinine Ratio 18 (6-20) Glucose Level 176 mg/dL (70-99) Calcium Level 8.8 mg/dL (8.5-10.1) Total Bilirubin 0.7 mg/dL (0.2-1.0) Aspartate Amino Transf (AST/SGOT) 39 U/L (15-37) Alanine Aminotransferase (ALT/SGPT) 64 U/L (14-59) Alkaline Phosphatase 98 U/L (46-116) Total Protein 7.3 g/dL (6.4-8.2) Albumin 2.6 g/dL (3.4-5.0) Albumin/Globulin Ratio 0.6 (1.0-1.7) Vitamin B12 Level 365 pg/mL (247-911) Glucose (Fingerstick) 238 mg/dL (70-99) Laboratory Tests Test 11/05/19 03:40 11/05/19 11:10 Sodium Level 135 mmol/L (136-145) Potassium Level 3.8 mmol/L (3.5-5.1) Chloride Level 102 mmol/L (98-107) Carbon Dioxide Level 26 mmol/L (21-32) Anion Gap 7 (6-14) Blood Urea Nitrogen 14 mg/dL (7-20) Creatinine 0.8 mg/dL (0.6-1.0) Estimated GFR (Cockcroft-Gault) 72.9 BUN/Creatinine Ratio 18 (6-20) Glucose Level 176 mg/dL (70-99) Calcium Level 8.8 mg/dL (8.5-10.1) Total Bilirubin 0.7 mg/dL (0.2-1.0) Aspartate Amino Transf (AST/SGOT) 39 U/L (15-37) Alanine Aminotransferase (ALT/SGPT) 64 U/L (14-59) Alkaline Phosphatase 98 U/L (46-116) Total Protein 7.3 g/dL (6.4-8.2) Albumin 2.6 g/dL (3.4-5.0) Albumin/Globulin Ratio 0.6 (1.0-1.7) Vitamin B12 Level 365 pg/mL (247-911) Glucose (Fingerstick) 238 mg/dL (70-99) Brief Hospital Course Ms Meraz is a 59yo F w/ PMHx [id number]-qeww smoking, quit smoking in 2014, COPD, HLD, HTN who presented to ED for increased SOB and cough. She has not felt well for the past 3-4 weeks. She is not able to bring up any sputum. She denies fever and chills. She feels much improved. No recent travel or COVID contacts. Admitted requiring O2 initially, pulmonology consulted. Started on Solu-Medrol 40 mg IV every 8 hours,azithromycin, Rocephin. Chest x- ray shows density in the left lower lobe area. WBC 6, hemoglobin 15.2, platelet 221, ABG: pH 7.39, pCO2 of 46, pO2 of 66. Influenza A and B negative. COVID- 19 pending. Troponin less than 0.01. BNP 18. Sodium 136, potassium 4.3, chloride 98, CO2 of 28, BUN 8, creatinine 0.7. Lactic acid 1. 4/27: Overnight feeling improved. Off O2 currently. Still with significant cough and wheezing. Not able to move to bathroom without assistance. Afebrile overnight. Off O2. Glucose elevated. On po prednisone and doxycycline. Discussed need for PCP follow up on her transaminitis, states this has been present since she had enbrel for psoriasis in 2014. She has never had Alpha-1 anti-trypsin deficiency testing and no recent spirometry. Has A1c pending, likely at least prediabetic. Will d/c on singulair during allergy season in roberto carlos tion to H1 kemi and prn nebulizers as well as 5 day doxycycline and prednisone taper. Problem list: Acute respiratory failure secondary to acute exacerbation of chronic obstructive pulmonary disease, acute bronchitis versus pneumonia. Left lower lobe abnormality on CXR COVID-19 suspected Acute exacerbation of chronic obstructive pulmonary disease. Acute bronchitis versus pneumonia. Ex-smoker. Hypertension. Macrocytosis - does drink moderately and B12 < 400 likely is deficient, was replaced Transaminitis Greater than 30 minutes spent on d/c Discharge Information Condition at Discharge: Improved Follow Up: Weeks (1) Disposition/Orders: D/C to Home Scheduled Albuterol Sulfate (Albuterol Sulfate Conc Neb Soln) 2.5 Mg/0.5 Ml Vial.neb, 1 VIAL NEB Q4HRS, #60 Ref 1 Prescribed by: PRUDENCE LEWIS D.O. on 10/11/19728 Last Action: Reviewed on 11/02/191818 by VERÓNICA GILL RN Aspirin (Aspir 81) 81 Mg Tablet.dr, 1 TAB PO DAILY, #30 Ref 5 (Reported) Entered as Reported by: SHADI ZHANG on 10/15/142201 Last Action: Continued on 11/03/191414 by VERÓNICA GILL RN Cetirizine Hcl (Cetirizine Hcl) 10 Mg Tablet, 1 TAB PO DAILY for , #30 Ref 5 (Reported) Entered as Reported by: VERÓNICA GILL RN on 11/02/191818 Last Action: Continued on 11/03/191414 by VERÓNICA GILL RN Doxycycline Hyclate (Doxycycline Hyclate) 100 Mg Tablet, 100 MG PO BID for COPD exacerbation for 5 Days, #10 Prescribed by: YOHANA PERKINS MD on 11/05/19 1235 Lisinopril (Lisinopril) 40 Mg Tablet, 1 TAB PO DAILY, #30 Ref 5 (Reported) Entered as Reported by: SHADI ZHANG on 10/15/142201 Last Action: Continued on 11/03/191414 by VERÓNICA GILL RN Metformin Hcl (Metformin Hcl) 500 Mg Tablet, 500 MG PO BIDWMEALS for Prediabetes for 90 Days, #180 Ref 0 Prescribed by: YOHANA PERKINS MD on 11/05/19 1235 Montelukast Sodium (Montelukast Sodium Tablet ) 10 Mg Tablet, 10 MG PO HS for FOR ASTHMA for 90 Days, #90 Ref 0 Prescribed by: YOHANA PERKINS MD on 11/05/19 1235 Prednisone (Prednisone) 20 Mg Tablet, 20 MG PO DAILY for COPD for 5 Days, #5 Prescribed by: YOHANA PERKINS MD on 11/05/19 1235 Discontinued Medications Simvastatin (Simvastatin) 40 Mg Tablet, 40 MG PO HS for FOR CHOLESTEROL, #30 Ref 0 (Reported) Entered as Reported by: BETY BERRY on 01/12/17 1040 Last Action: Continued on 11/03/19 1415 by SHAYNA IBARRA CHRISTOPHER S MD Nov 05, 2019 12:39
[2019-11-05] MEDS ORDERED: ATOR20TA58 PO (12:41)
--- NOTE | 2019-11-05 14:15 | NUR ---
Discharge Note: DEBRA KEYS [facility] Discharge instructions and discharge home medications reviewed with Patient and a copy given. All questions have been answered and understanding verbalized. The following instructions and handouts were given: patient visit report, medication information, education. Discontinued lines and drains: peripheral IV, tip intact. Patient discharged to home with self care via private vehicle. Patient left unit awake, in stable condition, with all personal belongings.
[2019-11-06 00:07] LABS: HEMOGLOBIN A1C 5.9 % (4.8-5.6)
[2019-11-06] MEDS ORDERED: CYANOCOBALAMIN (VITAMIN B-12) 100 MCG TABLET PO SCH (09:00)
== END 2019-11-05 13:30 | disposition home or self-care (01) | DRG 193 ==
LOC: ER 13:44 → 6 SOUTH 15:38
PROVIDERS: ADMIT Family Medicine; ATTEND Family Medicine
DX: J18.9 Pneumonia, unspecified organism (principal); J96.01 Acute respiratory failure with hypoxia; J44.0 Chronic obstructive pulmonary disease with (acute) lower respiratory infection; J44.1 Chronic obstructive pulmonary disease with (acute) exacerbation; J20.9 Acute bronchitis, unspecified; D75.89 Other specified diseases of blood and blood-forming organs; E78.00 Pure hypercholesterolemia, unspecified; E78.5 Hyperlipidemia, unspecified; F17.200 Nicotine dependence, unspecified, uncomplicated; R74.0 Nonspecific elevation of levels of transaminase and lactic acid dehydrogenase [LDH]; I10 Essential (primary) hypertension; L40.9 Psoriasis, unspecified; R73.03 Prediabetes; Z82.49 Family history of ischemic heart disease and other diseases of the circulatory system; Z20.828 Contact with and (suspected) exposure to other viral communicable diseases
CPT/HCPCS: 36415; 36600; 71045; 80053; 82607; 82805; 82962; 83036; 83605; 83880; 84484; 85025; 87040; 87635; 87804; 93005; 94644; J0456; J0696; J1815; J2920; J2930; J3420; J7050; J7512; G0378; J7030; J7613

== ENCOUNTER 2020-06-13 14:08 | Inpatient (IN) | payer OTHER ==
[~2020-06-13] VITALS: Ht 167.6 cm; Wt 97.0 kg
[~2020-06-13 14:08] MED LIST changes: +ATOR20TA58 PO; +CETI10TA16 PO; +DOXY100T PO; +METF500T16 PO; +MONT10TA49 PO
[2020-06-13 14:58] LABS: BASO # 0.1 x10^3/uL (0.0-0.2); BASO % 1 % (0-3); EOS # 0.9 x10^3/uL (0.0-0.7); EOS % 13 % (0-3); HEMATOCRIT 37.3 % (36.0-47.0); HEMOGLOBIN 12.8 g/dL (12.0-15.5); LYMPH # 1.8 x10^3/uL (1.0-4.8); LYMPH % 25 % (24-48); MEAN CORPUSCULAR HEMOGLOBIN 35 pg (25-35); MEAN CORPUSCULAR HGB CONC 34 g/dL (31-37); MEAN CORPUSCULAR VOLUME 102 fL (79-100); MONO # 0.7 x10^3/uL (0.0-1.1); MONO % 10 % (0-9); NEUT # 3.7 x10^3/uL (1.8-7.7); NEUT % 51 % (31-73); PLATELET COUNT 219 x10^3/uL (140-400); RED BLOOD COUNT 3.67 x10^6/uL (3.50-5.40); RED CELL DISTRIBUTION WIDTH 12.9 % (11.5-14.5); WHITE BLOOD COUNT 7.2 x10^3/uL (4.0-11.0)
--- NOTE | 2020-06-13 14:59 | PHYS DOC ---
Past Medical History Past Medical History: Asthma, COPD, High Cholesterol, Hypertension Past Surgical History: Other Additional Past Surgical Histo: ovary removal Smoking Status: Former Smoker Alcohol Use: Occasionally Drug Use: None General Adult EDM: Chief Complaint: SHORTNESS OF BREATH HPI: HPI: Patient is a 59 year old female who presented to ER for evaluation of 5-days history of nonproductive cough with trouble breathing. Patient denies any fever but she feels like she may have pneumonia. Patient denied being exposed to anybody who tested positive for COVID-19. She has a history of COPD, former smoker, not on any oxygen at home. She quit smoking 6 years ago. Review of Systems: Review of Systems: Constitutional: Denies fever or chills. [] Eyes: Denies change in visual acuity. [] HENT: Denies nasal congestion or sore throat. [] Respiratory: Positive for cough and shortness of breath. [] Cardiovascular: Denies chest pain or edema. [] GI: Denies abdominal pain, nausea, vomiting, bloody stools or diarrhea. [] : Denies dysuria. [] Musculoskeletal: Denies back pain or joint pain. [] Integument: Denies rash. [] Neurologic: Denies headache, focal weakness or sensory changes. [] Endocrine: Denies polyuria or polydipsia. [] Lymphatic: Denies swollen glands. [] Psychiatric: Denies depression or anxiety. [] Heart Score: Risk Factors: Risk Factors: DM, Current or recent (<one month) smoker, HTN, HLP, family history of CAD, obesity. Risk Scores: Score 0 - 3: 2.5% MACE over next 6 weeks - Discharge Home Score 4 - 6: 20.3% MACE over next 6 weeks - Admit for Clinical Observation Score 7 - 10: 72.7% MACE over next 6 weeks - Early Invasive Strategies Current Medications: Current Medications Medications (Trade) Dose Ordered Sig/Bren Start Time Stop Time Status Last Admin Dose Admin Albuterol/ Ipratropium (Duoneb) 3 ml 1X ONCE 06/13/20 15:00 06/13/20 15:01 Methylprednisolone Sodium Succinate (SOLU-Medrol 125MG VIAL) 125 mg 1X ONCE 06/13/20 15:00 06/13/20 15:01 06/13/20 14:52 125 MG Allergies: Allergies: Allergies Coded Allergies Type Severity Reaction Last Updated Verified No Known Drug Allergies 10/15/14 No Physical Exam: PE: Constitutional: Well developed, well nourished, mild acute distress, non-toxic appearance. [] HENT: Normocephalic, atraumatic, bilateral external ears normal, oropharynx moist, no oral exudates, nose normal. [] Eyes: PERRLA, EOMI, conjunctiva normal, no discharge. [] Neck: Normal range of motion, no tenderness, supple, no stridor. [] Cardiovascular:Heart rate regular rhythm, no murmur [] Lungs & Thorax: Bilateral breath sounds with wheezing, prolonged expiratory phage, tachypnic. Abdomen: Bowel sounds normal, soft, no tenderness, no masses, no pulsatile masses. [] Skin: Warm, dry, no erythema, no rash. [] Back: No tenderness, no CVA tenderness. [] Extremities: No tenderness, no cyanosis, no clubbing, ROM intact, no edema. [] Neurologic: Alert and oriented X 3, normal motor function, normal sensory function, no focal deficits noted. [] Psychologic: Affect normal, judgement normal, mood normal. [] Current Patient Data: Labs: Laboratory Tests Test 06/13/20 14:32 06/13/20 14:35 Lactic Acid Level 1.2 mmol/L White Blood Count 7.2 x10^3/uL Red Blood Count 3.67 x10^6/uL Hemoglobin 12.8 g/dL Hematocrit 37.3 % Mean Corpuscular Volume 102 fL Mean Corpuscular Hemoglobin 35 pg Mean Corpuscular Hemoglobin Concent 34 g/dL Red Cell Distribution Width 12.9 % Platelet Count 219 x10^3/uL Neutrophils (%) (Auto) 51 % Lymphocytes (%) (Auto) 25 % Monocytes (%) (Auto) 10 % Eosinophils (%) (Auto) 13 % Basophils (%) (Auto) 1 % Neutrophils # (Auto) 3.7 x10^3/uL Lymphocytes # (Auto) 1.8 x10^3/uL Monocytes # (Auto) 0.7 x10^3/uL Eosinophils # (Auto) 0.9 x10^3/uL Basophils # (Auto) 0.1 x10^3/uL Sodium Level 134 mmol/L Potassium Level 4.4 mmol/L Chloride Level 98 mmol/L Carbon Dioxide Level 27 mmol/L Anion Gap 9 Blood Urea Nitrogen 10 mg/dL Creatinine 0.8 mg/dL Estimated GFR (Cockcroft-Gault) 72.9 BUN/Creatinine Ratio 13 Glucose Level 101 mg/dL Calcium Level 9.5 mg/dL Magnesium Level 1.6 mg/dL Total Bilirubin 0.9 mg/dL Aspartate Amino Transf (AST/SGOT) 59 U/L Alanine Aminotransferase (ALT/SGPT) 63 U/L Alkaline Phosphatase 122 U/L Troponin I Quantitative < 0.017 ng/mL KS-Sem-[id number]-Type Natriuretic Peptide 22 pg/mL Total Protein 8.8 g/dL Albumin 3.6 g/dL Albumin/Globulin Ratio 0.7 Current Medications Medications (Trade) Dose Ordered Sig/Bren Route PRN Reason Start Time Stop Time Status Last Admin Dose Admin Methylprednisolone Sodium Succinate (SOLU-Medrol 125MG VIAL) 125 mg 1X ONCE IV 06/13/20 15:00 06/13/20 15:01 DC 06/13/20 14:52 Albuterol/ Ipratropium (Duoneb) 3 ml 1X ONCE NEB 06/13/20 15:00 06/13/20 15:01 DC 06/13/20 15:06 Magnesium Sulfate 50 ml @ 25 mls/hr 1X ONCE IV 06/13/20 16:30 06/13/20 18:29 EKG: EKG: EKG was done at 1429, heart rate of 99 beats per minute, sinus rhythm, no ST segment elevation. Radiology/Procedures: Radiology/Procedures: [][facility] [address] [place] [address] IMAGING REPORT Signed PATIENT: DEBRA KEYS JACCOUNT: [id number] : 1960 LOCATION: ER AGE: 59 SEX: F EXAM STATUS: PRE ER ORD. PHYSICIAN: SONYA VELASCO DO REASON: soa PROCEDURE: CHEST AP ONLY CHEST AP ONLY Clinical History: Reason: soa / Spl. Instructions: / History: Technique: AP view of the chest was obtained at 06/13/2020 2:31 PM. Comparison: November 02, 2019. Findings: The cardiomediastinal silhouette is normal. The pulmonary vasculature is normal. Vague hazy opacity lung bases is likely discoid atelectasis. Impression: No evidence of an acute cardiopulmonary process. Electronically signed by: Sancho Becker III, MD (06/13/2020 2:54 PM) [facility] DICTATED and SIGNED BY: SANCHO BECKER III, MD DATE: 06/13/20 [id number] Course & Med Decision Making: Course & Med Decision Making Pertinent Labs and Imaging studies reviewed. (See chart for details) Patient is a 59-year-old female who was evaluated in the ER due to trouble breathing. Patient was found to have COPD exacerbation. Patient denies any fever, she has been evaluated for possible COVID-19 infection as well. She she is not on oxygen at home. She did require oxygen here in the ER. We will get her admitted to hospital for further evaluation and treatment Dragon Disclaimer: Dragon Disclaimer: This electronic medical record was generated, in whole or in part, using a voice recognition dictation system. Departure Departure Impression: Primary Impression: COPD exacerbation Additional Impressions: Person under investigation for COVID-19 Hypomagnesemia Disposition: ADMITTED INPT THIS HOSP Admitting Physician: LUCIO (Dr. Todd) Condition: IMPROVED Referrals: NO PCP (PCP) SONYA VELASCO DO Jun 13, 2020 14:59
[2020-06-13] MEDS ORDERED: methylPREDNISolone SOD SUCC PF 125 MG/2 ML VIAL. IV ONE (15:00)
[2020-06-13] MEDS ORDERED: IPRATRPIUM/ALBUTEROL 0.5/2.5MG 3 ML NEBU. NEB ONE (15:00)
[2020-06-13 15:12] LABS: CALCIUM 9.5 mg/dL (8.5-10.1); CREATININE 0.8 mg/dL (0.6-1.0); GFR 72.9; POTASSIUM 4.4 mmol/L (3.5-5.1)
[2020-06-13 15:17] LABS: ALBUMIN 3.6 g/dL (3.4-5.0); ALBUMIN/GLOBULIN RATIO 0.7 (1.0-1.7); MAGNESIUM 1.6 mg/dL (1.8-2.4); TOTAL BILIRUBIN 0.9 mg/dL (0.2-1.0); TOTAL PROTEIN 8.8 g/dL (6.4-8.2)
[2020-06-13] MEDS ORDERED: MAGNESIUM SULFATE 2GM 50 ML IV ONE (16:30)
--- NOTE | 2020-06-13 17:52 | HP ---
ADMIT DATE: 06/13/2020 CHIEF COMPLAINT: Shortness of breath. HISTORY OF PRESENT ILLNESS: The patient is a pleasant 59-year-old female who quit smoking 6 years ago. Basically, she has COPD and presented with shortness of breath and cough. She appears to have a COPD exacerbation, rates her symptoms at 7/10. She has associated weakness, has been occurring for several days. She increased her home meds, but that did not work, describes her symptoms as agonizing, worse with moving, better with sitting still. I discussed the case with ER physician. We are going to admit the patient and consult Pulmonary Medicine. PAST MEDICAL HISTORY: COPD, but she quit smoking 6 years ago, asthma, hypertension, hyperlipidemia. ALLERGIES: None. FAMILY HISTORY: Diabetes. SOCIAL HISTORY: Quit smoking, no drinking or drugs. 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 MEDICATIONS: Reviewed, please refer to the MRAD. REVIEW OF SYSTEMS: GENERAL: No history of weight change, weakness or fevers. SKIN: No bruising, hair changes or rashes. EYES: No blurred, double or loss of vision. NOSE AND THROAT: No history of nosebleeds, hoarseness or sore throat. HEART: No history of palpitations, chest pain or shortness of breath on exertion. PULMONARY: Complains of shortness of breath. GASTROINTESTINAL: Denies changes in appetite, nausea, vomiting, diarrhea or constipation. GENITOURINARY: No history of frequency, urgency, hesitancy or nocturia. NEUROLOGIC: Denies history of numbness, tingling, tremor or weakness. PSYCHIATRIC: No history of panic, anxiety or depression. ENDOCRINE: No history of heat or cold intolerance, polyuria or polydipsia. EXTREMITIES: Denies muscle weakness, joint pain, pain on walking or stiffness. PHYSICAL EXAMINATION: VITALS: Within normal limits and are stable. GENERAL: No apparent distress. Alert and oriented. HEENT: Normal cephalic atraumatic, external auditory canals are patent EYES: Extraocular muscles are intact, pupils are equally round and reactive to light and accommodation MUSCULOSKELETAL: Well developed, well nourished, good range of motion ENDOCRINE: No thyromegaly was palpated LYMPHATICS: No cervical chain or axillary nodes were noted HEMATOPOIETIC: No bruising NECK: Supple, no JVD, no thyromegaly was noted. LUNGS: Clear to auscultation in all lung pandya without rhonchi or wheezing. HEART: RRR, S1, S2 present. Peripheral pulses intact, no obvious murmurs were noted. ABDOMEN: She has decreased bowel sounds. EXTREMITIES: Without any cyanosis, clubbing, or edema. Pedal pulses intact, Homans sign is negative. NEUROLOGIC: Normal speech, normal tone. A & O x3, moves all extremities, no obvious focal deficits. PSYCHIATRIC: Normal affect, normal mood. Stable. SKIN: No ulcerations or rashes, good skin turgor, no jaundice. VASCULAR: Good capillary refill, neurovascular bundle appears to be intact. LABORATORY DATA: Electrolytes show a sodium of 134, otherwise they are normal. Troponin is 0. White count 7, hemoglobin 12, platelets 211. Chest x-ray is negative. ASSESSMENT AND PLAN: Respiratory failure. The patient will be admitted. We will start IV steroids, breathing treatments, oxygen. Consult Pulmonary. Home meds. Deep venous thrombosis prophylaxis. Full code. AVINASH ALEX DO DR: RUFINO/crystal JOB#: [id number] / [id number]
[2020-06-13] MEDS: methylPREDNISolone SOD SUCC PF 40 MG/ML VIAL. IV SCH (21:39)
[2020-06-13] MEDS: OXYMETAZOLINE 0.05% NASAL SPRAY 30ML BOTTLE. NS SCH (21:39)
[2020-06-13] MEDS: IPRATRPIUM/ALBUTEROL 0.5/2.5MG 3 ML NEBU. NEB SCH (21:43)
[2020-06-13 23:34] VITALS: BP 137/78
[2020-06-14 02:27] VITALS: BP 113/52
[2020-06-14] MEDS: IPRATRPIUM/ALBUTEROL 0.5/2.5MG 3 ML NEBU. NEB SCH ×5 (06:00→22:00)
[2020-06-14 07:00] VITALS: BP 130/84
--- NOTE | 2020-06-14 07:51 | CONS ---
DATE OF CONSULTATION: 06/14/2020 I was asked to see this 59-year-old lady for acute exacerbation of COPD, COVID-19 PUI. HISTORY OF PRESENT ILLNESS: She has history of [id number] smoking, stopped smoking in 2014. She has had increased shortness of breath and cough for the past 3-4 days. She denies fever, chills, sputum production, diarrhea, or body ache. She is not able to cough up her sputum. PAST MEDICAL HISTORY: COPD, hypercholesterolemia, hypertension. ALLERGIES: No known drug allergies. MEDICATIONS: Currently, she is on DuoNeb, Solu-Medrol 40 mg IV every 12. SOCIAL HISTORY: History of [id number] smoking, quit smoking in 2014. FAMILY HISTORY: Hypertension. REVIEW OF SYSTEMS: As mentioned as above, other systems otherwise negative. PHYSICAL EXAMINATION: GENERAL: This is an obese lady. VITAL SIGNS: Her O2 saturation is 91% on room air. Heart rate 92, blood pressure 130/52, respirations 20. HEENT: Normocephalic, atraumatic. CARDIOVASCULAR: Regular rate and rhythm. LUNGS: Chest inspection, there is no paradoxical abdominal motion. ABDOMEN: Obese. EXTREMITIES: There is no cyanosis. NEUROLOGIC: Alert and oriented. SKIN: No rash. LABORATORY DATA: I reviewed the following lab data. Chest x-ray does not show infiltrate. WBC 7.2, hemoglobin 12.8, platelet are 219. Sodium 134, potassium 4.4, chloride 98, CO2 of 27, BUN 10, creatinine 0.8, glucose 101, lactic acid 1.2. Troponin less than 0.017. BNP 22. IMPRESSION: 1. Acute respiratory failure secondary to acute exacerbation of chronic obstructive pulmonary disease, acute bronchitis, rule out COVID-19. 2. COVID-19 PUI. 3. Acute exacerbation of chronic obstructive pulmonary disease. 4. Acute bronchitis. 5. Ex-smoker. 6. Hypertension. PLAN AND RECOMMENDATIONS: 1. Titrate FiO2 to keep O2 saturation 92%. 2. Continue Solu-Medrol. 3. Bronchodilator. 4. Follow up COVID-19 testing. 5. Continue not smoking. 6. Start antibiotic. 7. The findings and recommendations were discussed with the RN. Thank you very much for allowing me to participate in care of this very nice lady. LORENE AYOUB M.D. DR: Shereen JOB#: [id number] / [id number]
[2020-06-14 07:53] LABS: BASO % 0 % (0-3); EOS % 0 % (0-3); HEMATOCRIT 36.5 % (36.0-47.0); HEMOGLOBIN 12.3 g/dL (12.0-15.5); LYMPH # 0.9 x10^3/uL (1.0-4.8); LYMPH % 13 % (24-48); MEAN CORPUSCULAR HEMOGLOBIN 34 pg (25-35); MEAN CORPUSCULAR HGB CONC 34 g/dL (31-37); MEAN CORPUSCULAR VOLUME 102 fL (79-100); MONO # 0.1 x10^3/uL (0.0-1.1); MONO % 2 % (0-9); NEUT # 5.8 x10^3/uL (1.8-7.7); NEUT % 84 % (31-73); PLATELET COUNT 205 x10^3/uL (140-400); RED BLOOD COUNT 3.59 x10^6/uL (3.50-5.40); WHITE BLOOD COUNT 6.8 x10^3/uL (4.0-11.0)
[2020-06-14 07:59] LABS: CALCIUM 9.2 mg/dL (8.5-10.1); GFR 56.4; POTASSIUM 4.7 mmol/L (3.5-5.1)
[2020-06-14] MEDS ORDERED: FOLI0.4T2 PO (08:04)
[2020-06-14] MEDS ORDERED: CYAN100072 PO (08:04)
[2020-06-14] MEDS ORDERED: MILK175T2 PO (08:04)
[2020-06-14] MEDS: ALBUTEROL SULFATE 8GM INHALER. INH SCH ×3 (08:06→21:00)
[2020-06-14] MEDS: cefTRIAXone IV Push 1 GM VIAL. IVP SCH (08:11)
[2020-06-14] MEDS: methylPREDNISolone SOD SUCC PF 40 MG/ML VIAL. IV SCH ×2 (08:12→20:18)
[2020-06-14 10:58] VITALS: BP 130/63
--- NOTE | 2020-06-14 11:10 | PDOC ---
PROGRESS NOTES Date of Service: DATE: 06/14/20 TIME: 11:08 Chief Complaint Chief Complaint ASSESSMENT AND PLAN: Respiratory failure. , ACUTE, HYPOXIC Acute exacerbation of chronic obstructive pulmonary disease. Acute bronchitis versus pneumonia. Ex-smoker. Hypertension. Macrocytosis - does drink moderately and B12 < 400 likely is deficient, was replaced Transaminitis MORBID OBESITY PLAN admitted. TAPERING IV steroids, breathing treatments, oxygen. Consult Pulmonary. Home meds. Deep venous thrombosis prophylaxis. Full code. Vitals Vitals Vital Signs Date Time Temp Pulse Resp B/P (MAP) Pulse Ox O2 Delivery O2 Flow Rate FiO2 06/14/20 10:58 97.7 78 18 130/63 (85) 92 Room Air 97.7 06/14/20 08:00 2.0 Physical Exam Physical Exam GENERAL: No apparent distress. Alert and oriented. HEENT: Normal cephalic atraumatic, external auditory canals are patent EYES: Extraocular muscles are intact, pupils are equally round and reactive to light and accommodation MUSCULOSKELETAL: Well developed, well nourished, good range of motion ENDOCRINE: No thyromegaly was palpated LYMPHATICS: No cervical chain or axillary nodes were noted HEMATOPOIETIC: No bruising NECK: Supple, no JVD, no thyromegaly was noted. LUNGS: all lung pandya WITH EXP wheezing. HEART: RRR, S1, S2 present. Peripheral pulses intact, no obvious murmurs were noted. ABDOMEN: She has decreased bowel sounds. EXTREMITIES: Without any cyanosis, clubbing, or edema. Pedal pulses intact, Homans sign is negative. NEUROLOGIC: Normal speech, normal tone. A & O x3, moves all extremities, no obvious focal deficits. PSYCHIATRIC: Normal affect, normal mood. Stable. SKIN: No ulcerations or rashes, good skin turgor, no jaundice. VASCULAR: Good capillary refill, neurovascular bundle appears to be intact. Lungs: Clear, Other Labs LABS Laboratory Tests Test 06/13/20 14:32 06/13/20 14:35 06/14/20 07:39 06/14/20 07:54 Lactic Acid Level 1.2 mmol/L (0.4-2.0) White Blood Count 7.2 x10^3/uL (4.0-11.0) 6.8 x10^3/uL (4.0-11.0) Red Blood Count 3.67 x10^6/uL (3.50-5.40) 3.59 x10^6/uL (3.50-5.40) Hemoglobin 12.8 g/dL (12.0-15.5) 12.3 g/dL (12.0-15.5) Hematocrit 37.3 % (36.0-47.0) 36.5 % (36.0-47.0) Mean Corpuscular Volume 102 fL (79-100) 102 fL (79-100) Mean Corpuscular Hemoglobin 35 pg (25-35) 34 pg (25-35) Mean Corpuscular Hemoglobin Concent 34 g/dL (31-37) 34 g/dL (31-37) Red Cell Distribution Width 12.9 % (11.5-14.5) 13.0 % (11.5-14.5) Platelet Count 219 x10^3/uL (140-400) 205 x10^3/uL (140-400) Neutrophils (%) (Auto) 51 % (31-73) 84 % (31-73) Lymphocytes (%) (Auto) 25 % (24-48) 13 % (24-48) Monocytes (%) (Auto) 10 % (0-9) 2 % (0-9) Eosinophils (%) (Auto) 13 % (0-3) 0 % (0-3) Basophils (%) (Auto) 1 % (0-3) 0 % (0-3) Neutrophils # (Auto) 3.7 x10^3/uL (1.8-7.7) 5.8 x10^3/uL (1.8-7.7) Lymphocytes # (Auto) 1.8 x10^3/uL (1.0-4.8) 0.9 x10^3/uL (1.0-4.8) Monocytes # (Auto) 0.7 x10^3/uL (0.0-1.1) 0.1 x10^3/uL (0.0-1.1) Eosinophils # (Auto) 0.9 x10^3/uL (0.0-0.7) 0.0 x10^3/uL (0.0-0.7) Basophils # (Auto) 0.1 x10^3/uL (0.0-0.2) 0.0 x10^3/uL (0.0-0.2) Sodium Level 134 mmol/L (136-145) 129 mmol/L (136-145) Potassium Level 4.4 mmol/L (3.5-5.1) 4.7 mmol/L (3.5-5.1) Chloride Level 98 mmol/L (98-107) 95 mmol/L (98-107) Carbon Dioxide Level 27 mmol/L (21-32) 26 mmol/L (21-32) Anion Gap 9 (6-14) 8 (6-14) Blood Urea Nitrogen 10 mg/dL (7-20) 17 mg/dL (7-20) Creatinine 0.8 mg/dL (0.6-1.0) 1.0 mg/dL (0.6-1.0) Estimated GFR (Cockcroft-Gault) 72.9 56.4 BUN/Creatinine Ratio 13 (6-20) Glucose Level 101 mg/dL (70-99) 148 mg/dL (70-99) Calcium Level 9.5 mg/dL (8.5-10.1) 9.2 mg/dL (8.5-10.1) Magnesium Level 1.6 mg/dL (1.8-2.4) Total Bilirubin 0.9 mg/dL (0.2-1.0) Aspartate Amino Transf (AST/SGOT) 59 U/L (15-37) Alanine Aminotransferase (ALT/SGPT) 63 U/L (14-59) Alkaline Phosphatase 122 U/L (46-116) Troponin I Quantitative < 0.017 ng/mL (0.000-0.055) JR-Epc-Z-Type Natriuretic Peptide 22 pg/mL (0-124) Total Protein 8.8 g/dL (6.4-8.2) Albumin 3.6 g/dL (3.4-5.0) Albumin/Globulin Ratio 0.7 (1.0-1.7) Glucose (Fingerstick) 156 mg/dL (70-99) Assessment and Plan Assessmemt and Plan Problems Medical Problems: (1) COPD exacerbation Status: Acute (2) Hypomagnesemia Status: Acute (3) Person under investigation for COVID-19 Status: Acute Comment Review of Relevant I have reviewed the following items bryant (where applicable) has been applied. Labs Laboratory Tests Test 06/13/20 14:32 06/13/20 14:35 06/14/20 07:39 06/14/20 07:54 Lactic Acid Level 1.2 mmol/L (0.4-2.0) White Blood Count 7.2 x10^3/uL (4.0-11.0) 6.8 x10^3/uL (4.0-11.0) Red Blood Count 3.67 x10^6/uL (3.50-5.40) 3.59 x10^6/uL (3.50-5.40) Hemoglobin 12.8 g/dL (12.0-15.5) 12.3 g/dL (12.0-15.5) Hematocrit 37.3 % (36.0-47.0) 36.5 % (36.0-47.0) Mean Corpuscular Volume 102 fL (79-100) 102 fL (79-100) Mean Corpuscular Hemoglobin 35 pg (25-35) 34 pg (25-35) Mean Corpuscular Hemoglobin Concent 34 g/dL (31-37) 34 g/dL (31-37) Red Cell Distribution Width 12.9 % (11.5-14.5) 13.0 % (11.5-14.5) Platelet Count 219 x10^3/uL (140-400) 205 x10^3/uL (140-400) Neutrophils (%) (Auto) 51 % (31-73) 84 % (31-73) Lymphocytes (%) (Auto) 25 % (24-48) 13 % (24-48) Monocytes (%) (Auto) 10 % (0-9) 2 % (0-9) Eosinophils (%) (Auto) 13 % (0-3) 0 % (0-3) Basophils (%) (Auto) 1 % (0-3) 0 % (0-3) Neutrophils # (Auto) 3.7 x10^3/uL (1.8-7.7) 5.8 x10^3/uL (1.8-7.7) Lymphocytes # (Auto) 1.8 x10^3/uL (1.0-4.8) 0.9 x10^3/uL (1.0-4.8) Monocytes # (Auto) 0.7 x10^3/uL (0.0-1.1) 0.1 x10^3/uL (0.0-1.1) Eosinophils # (Auto) 0.9 x10^3/uL (0.0-0.7) 0.0 x10^3/uL (0.0-0.7) Basophils # (Auto) 0.1 x10^3/uL (0.0-0.2) 0.0 x10^3/uL (0.0-0.2) Sodium Level 134 mmol/L (136-145) 129 mmol/L (136-145) Potassium Level 4.4 mmol/L (3.5-5.1) 4.7 mmol/L (3.5-5.1) Chloride Level 98 mmol/L (98-107) 95 mmol/L (98-107) Carbon Dioxide Level 27 mmol/L (21-32) 26 mmol/L (21-32) Anion Gap 9 (6-14) 8 (6-14) Blood Urea Nitrogen 10 mg/dL (7-20) 17 mg/dL (7-20) Creatinine 0.8 mg/dL (0.6-1.0) 1.0 mg/dL (0.6-1.0) Estimated GFR (Cockcroft-Gault) 72.9 56.4 BUN/Creatinine Ratio 13 (6-20) Glucose Level 101 mg/dL (70-99) 148 mg/dL (70-99) Calcium Level 9.5 mg/dL (8.5-10.1) 9.2 mg/dL (8.5-10.1) Magnesium Level 1.6 mg/dL (1.8-2.4) Total Bilirubin 0.9 mg/dL (0.2-1.0) Aspartate Amino Transf (AST/SGOT) 59 U/L (15-37) Alanine Aminotransferase (ALT/SGPT) 63 U/L (14-59) Alkaline Phosphatase 122 U/L (46-116) Troponin I Quantitative < 0.017 ng/mL (0.000-0.055) AG-Qsu-D-Type Natriuretic Peptide 22 pg/mL (0-124) Total Protein 8.8 g/dL (6.4-8.2) Albumin 3.6 g/dL (3.4-5.0) Albumin/Globulin Ratio 0.7 (1.0-1.7) Glucose (Fingerstick) 156 mg/dL (70-99) Laboratory Tests Test 06/13/20 14:32 06/13/20 14:35 06/14/20 07:39 06/14/20 07:54 Lactic Acid Level 1.2 mmol/L (0.4-2.0) White Blood Count 7.2 x10^3/uL (4.0-11.0) 6.8 x10^3/uL (4.0-11.0) Red Blood Count 3.67 x10^6/uL (3.50-5.40) 3.59 x10^6/uL (3.50-5.40) Hemoglobin 12.8 g/dL (12.0-15.5) 12.3 g/dL (12.0-15.5) Hematocrit 37.3 % (36.0-47.0) 36.5 % (36.0-47.0) Mean Corpuscular Volume 102 fL (79-100) 102 fL (79-100) Mean Corpuscular Hemoglobin 35 pg (25-35) 34 pg (25-35) Mean Corpuscular Hemoglobin Concent 34 g/dL (31-37) 34 g/dL (31-37) Red Cell Distribution Width 12.9 % (11.5-14.5) 13.0 % (11.5-14.5) Platelet Count 219 x10^3/uL (140-400) 205 x10^3/uL (140-400) Neutrophils (%) (Auto) 51 % (31-73) 84 % (31-73) Lymphocytes (%) (Auto) 25 % (24-48) 13 % (24-48) Monocytes (%) (Auto) 10 % (0-9) 2 % (0-9) Eosinophils (%) (Auto) 13 % (0-3) 0 % (0-3) Basophils (%) (Auto) 1 % (0-3) 0 % (0-3) Neutrophils # (Auto) 3.7 x10^3/uL (1.8-7.7) 5.8 x10^3/uL (1.8-7.7) Lymphocytes # (Auto) 1.8 x10^3/uL (1.0-4.8) 0.9 x10^3/uL (1.0-4.8) Monocytes # (Auto) 0.7 x10^3/uL (0.0-1.1) 0.1 x10^3/uL (0.0-1.1) Eosinophils # (Auto) 0.9 x10^3/uL (0.0-0.7) 0.0 x10^3/uL (0.0-0.7) Basophils # (Auto) 0.1 x10^3/uL (0.0-0.2) 0.0 x10^3/uL (0.0-0.2) Sodium Level 134 mmol/L (136-145) 129 mmol/L (136-145) Potassium Level 4.4 mmol/L (3.5-5.1) 4.7 mmol/L (3.5-5.1) Chloride Level 98 mmol/L (98-107) 95 mmol/L (98-107) Carbon Dioxide Level 27 mmol/L (21-32) 26 mmol/L (21-32) Anion Gap 9 (6-14) 8 (6-14) Blood Urea Nitrogen 10 mg/dL (7-20) 17 mg/dL (7-20) Creatinine 0.8 mg/dL (0.6-1.0) 1.0 mg/dL (0.6-1.0) Estimated GFR (Cockcroft-Gault) 72.9 56.4 BUN/Creatinine Ratio 13 (6-20) Glucose Level 101 mg/dL (70-99) 148 mg/dL (70-99) Calcium Level 9.5 mg/dL (8.5-10.1) 9.2 mg/dL (8.5-10.1) Magnesium Level 1.6 mg/dL (1.8-2.4) Total Bilirubin 0.9 mg/dL (0.2-1.0) Aspartate Amino Transf (AST/SGOT) 59 U/L (15-37) Alanine Aminotransferase (ALT/SGPT) 63 U/L (14-59) Alkaline Phosphatase 122 U/L (46-116) Troponin I Quantitative < 0.017 ng/mL (0.000-0.055) PD-Dly-R-Type Natriuretic Peptide 22 pg/mL (0-124) Total Protein 8.8 g/dL (6.4-8.2) Albumin 3.6 g/dL (3.4-5.0) Albumin/Globulin Ratio 0.7 (1.0-1.7) Glucose (Fingerstick) 156 mg/dL (70-99) Medications Current Medications Methylprednisolone Sodium Succinate (SOLU-Medrol 125MG VIAL) 125 mg 1X ONCE IV Last administered on 06/13/20at 14:52; Start 06/13/20 at 15:00; Stop 06/13/20 at 15:01; Status DC Albuterol/ Ipratropium (Duoneb) 3 ml 1X ONCE NEB Last administered on 06/13/20at 15:06; Start 06/13/20 at 15:00; Stop 06/13/20 at 15:01; Status DC Magnesium Sulfate 50 ml @ 25 mls/hr 1X ONCE IV Last administered on 06/13/20at 17:00; Start 06/13/20 at 16:30; Stop 06/13/20 at 18:29; Status DC Methylprednisolone Sodium Succinate (SOLU-Medrol 40MG VIAL) 40 mg BID IV Last administered on 06/14/20at 08:12; Start 06/13/20 at 21:00 Albuterol/ Ipratropium (Duoneb) 3 ml Q4HRS W/A NEB Last administered on 06/13/20at 21:43; Start 06/13/20 at 22:00 Oxymetazoline HCl (Afrin) 2 spray Q12HR NS Last administered on 06/13/20at 21:39; Start 06/13/20 at 21:30 Albuterol/ Ipratropium (Combivent Respimat 20-100 Mcg) 1 puff Q8HRS INH ; Start 06/14/20 at 08:00 Albuterol Sulfate (Ventolin Hfa) 1 puff Q8HRS INH Last administered on 06/14/20at 08:06; Start 06/14/20 at 08:00 Ceftriaxone Sodium (Rocephin) 1 gm Q24H IVP Last administered on 06/14/20at 08:11; Start 06/14/20 at 09:00 Active Scripts Active Atorvastatin Calcium 20 Mg Tablet 1 Tab PO DAILY 90 Days Metformin Hcl 500 Mg Tablet 500 Mg PO BIDWMEALS 90 Days Montelukast Sodium Tablet (Montelukast Sodium) 10 Mg Tablet 10 Mg PO HS 90 Days Albuterol Sulfate Conc Neb Soln (Albuterol Sulfate) 2.5 Mg/0.5 Ml Vial.neb 1 Vial NEB Q4HRS Reported Milk Thistle (Milk Thistle Seed Extract) 175 Mg Tablet 175 Mg PO DAILY Folic Acid 0.4 Mg Tablet 0.4 Mg PO DAILY B-12 (Cyanocobalamin (Vitamin B-12)) 1,000 Mcg Tablet 1 Tab PO DAILY 30 Days Cetirizine Hcl 10 Mg Tablet 1 Tab PO DAILY Aspir 81 (Aspirin) 81 Mg Tablet. 1 Tab PO DAILY Lisinopril 40 Mg Tablet 1 Tab PO DAILY Vitals/I & O Vital Sign - Last 24 Hours 06/13/20 06/13/20 06/13/20 06/13/20 14:10 14:20 14:50 15:08 Temp 98.1 98.1 Pulse 104 104 105 Resp 32 B/P (MAP) 167/81 (109) 167/81 (109) 160/72 (101) Pulse Ox 88 94 94 95 O2 Delivery Room Air Nasal Cannula Nasal Cannula Nasal Cannula O2 Flow Rate 3.0 3.0 3.0 06/13/20 06/13/20 06/13/20 06/13/20 15:20 15:50 16:20 16:50 Pulse 94 88 94 82 B/P (MAP) 121/59 (79) 126/60 (82) 123/76 (92) 122/70 (87) Pulse Ox 97 96 95 91 O2 Delivery Nasal Cannula Nasal Cannula Nasal Cannula Nasal Cannula O2 Flow Rate 3.0 3.0 2.0 2.0 06/13/20 06/13/20 06/13/20 06/13/20 17:20 17:50 18:50 19:20 Pulse 80 88 86 81 B/P (MAP) 116/61 (79) 146/69 (94) 146/66 (92) 144/70 (94) Pulse Ox 92 93 92 93 O2 Delivery Room Air Room Air Room Air Room Air 06/13/20 06/13/20 06/13/20 06/13/20 19:50 20:20 20:50 21:45 Pulse 79 79 93 B/P (MAP) 152/76 (101) 144/82 (102) 169/77 (107) Pulse Ox 93 94 94 96 O2 Delivery Room Air Room Air Room Air Room Air 06/13/20 06/14/20 06/14/20 06/14/20 23:34 02:27 07:00 08:00 Temp 98.0 98.2 98.4 98.0 98.2 98.4 Pulse 77 92 79 Resp 18 20 20 B/P (MAP) 137/78 (97) 113/52 (72) 130/84 (99) Pulse Ox 96 91 92 O2 Delivery Room Air Room Air Room Air Room Air O2 Flow Rate 2.0 06/14/20 10:58 Temp 97.7 97.7 Pulse 78 Resp 18 B/P (MAP) 130/63 (85) Pulse Ox 92 O2 Delivery Room Air Intake and Output 06/13/20 06/13/20 06/14/20 15:00 23:00 07:00 Intake Total 500 ml Balance 500 ml Justicifation of Admission Dx: Justifications for Admission: Justification of Admission Dx: Yes Sepsis: Hypoxemia Acute COPD Exacerbation: Acute COPD Exacerbation HIRAM LANCASTER MD Jun 14, 2020 11:10
[2020-06-14] MEDS: IPRATROPIUM/ALBUTEROL 20/100mcg/INH INHALER. INH SCH ×3 (11:13→21:00)
--- NOTE | 2020-06-14 11:51 | NUR ---
Nebulizer txs not given due to pt PUI COVID status CHolmesRRT
[2020-06-14] MEDS ORDERED: MAGNESIUM SULFATE 2GM 50 ML IV ONE (12:00)
[2020-06-14] MEDS: OXYMETAZOLINE 0.05% NASAL SPRAY 30ML BOTTLE. NS SCH ×2 (14:24→20:19)
[2020-06-14 15:02] VITALS: BP 134/80
[2020-06-14 18:55] VITALS: BP 135/64
[2020-06-14] MEDS: metFORMIN 500 MG TABLET PO SCH (20:18)
[2020-06-14] MEDS ORDERED: ATORVASTATIN CALCIUM 20 MG TABLET PO SCH (21:00)
[2020-06-14] MEDS ORDERED: MONTELUKAST SODIUM 10 MG TABLET. PO SCH (21:00)
[2020-06-14 22:46] VITALS: BP 134/80
[2020-06-15 02:43] VITALS: BP 119/65
[2020-06-15] MEDS: ALBUTEROL SULFATE 8GM INHALER. INH SCH (05:23)
[2020-06-15] MEDS: IPRATROPIUM/ALBUTEROL 20/100mcg/INH INHALER. INH SCH (05:23)
[2020-06-15] MEDS: IPRATRPIUM/ALBUTEROL 0.5/2.5MG 3 ML NEBU. NEB SCH ×3 (06:00→14:00)
[2020-06-15 07:00] VITALS: BP 129/76
[2020-06-15] MEDS: metFORMIN 500 MG TABLET PO SCH (08:03)
[2020-06-15] MEDS: methylPREDNISolone SOD SUCC PF 40 MG/ML VIAL. IV SCH (08:04)
[2020-06-15] MEDS: OXYMETAZOLINE 0.05% NASAL SPRAY 30ML BOTTLE. NS SCH (08:17)
[2020-06-15] MEDS: cefTRIAXone IV Push 1 GM VIAL. IVP SCH (08:25)
[2020-06-15] MEDS ORDERED: FOLIC ACID 1 MG TABLET. PO SCH (09:00)
[2020-06-15] MEDS ORDERED: MILK THISTLE SEED EXTRACT 175 MG PO SCH (09:00)
[2020-06-15] MEDS ORDERED: CETIRIZINE HCL 10 MG TABLET. PO SCH (09:00)
[2020-06-15] MEDS ORDERED: ASPIRIN ENTERIC COATED 81 MG TABLET.DR. PO SCH (09:00)
[2020-06-15] MEDS ORDERED: CYANOCOBALAMIN (VITAMIN B-12) 1,000 MCG TABLET. PO SCH (09:00)
[2020-06-15] MEDS ORDERED: LISINOPRIL 20 MG TABLET PO SCH (09:00)
--- NOTE | 2020-06-15 09:57 | PDOC ---
PULMONARY PROGRESS NOTES DATE: 06/15/20 TIME: 09:56 Subjective cough, no soa Vitals Vital Signs Date Time Temp Pulse Resp B/P (MAP) Pulse Ox O2 Delivery O2 Flow Rate FiO2 06/15/20 08:03 94 119/65 06/15/20 08:00 Room Air 06/15/20 07:00 97.8 21 95 97.8 06/14/20 08:00 2.0 Comments visual exam done due to COVID no soa, no edema, no rash General: Alert, No acute distress Labs Laboratory Tests Test 06/13/20 14:32 06/13/20 14:35 06/14/20 07:39 06/14/20 07:54 Lactic Acid Level 1.2 mmol/L (0.4-2.0) White Blood Count 7.2 x10^3/uL (4.0-11.0) 6.8 x10^3/uL (4.0-11.0) Red Blood Count 3.67 x10^6/uL (3.50-5.40) 3.59 x10^6/uL (3.50-5.40) Hemoglobin 12.8 g/dL (12.0-15.5) 12.3 g/dL (12.0-15.5) Hematocrit 37.3 % (36.0-47.0) 36.5 % (36.0-47.0) Mean Corpuscular Volume 102 fL (79-100) 102 fL (79-100) Mean Corpuscular Hemoglobin 35 pg (25-35) 34 pg (25-35) Mean Corpuscular Hemoglobin Concent 34 g/dL (31-37) 34 g/dL (31-37) Red Cell Distribution Width 12.9 % (11.5-14.5) 13.0 % (11.5-14.5) Platelet Count 219 x10^3/uL (140-400) 205 x10^3/uL (140-400) Neutrophils (%) (Auto) 51 % (31-73) 84 % (31-73) Lymphocytes (%) (Auto) 25 % (24-48) 13 % (24-48) Monocytes (%) (Auto) 10 % (0-9) 2 % (0-9) Eosinophils (%) (Auto) 13 % (0-3) 0 % (0-3) Basophils (%) (Auto) 1 % (0-3) 0 % (0-3) Neutrophils # (Auto) 3.7 x10^3/uL (1.8-7.7) 5.8 x10^3/uL (1.8-7.7) Lymphocytes # (Auto) 1.8 x10^3/uL (1.0-4.8) 0.9 x10^3/uL (1.0-4.8) Monocytes # (Auto) 0.7 x10^3/uL (0.0-1.1) 0.1 x10^3/uL (0.0-1.1) Eosinophils # (Auto) 0.9 x10^3/uL (0.0-0.7) 0.0 x10^3/uL (0.0-0.7) Basophils # (Auto) 0.1 x10^3/uL (0.0-0.2) 0.0 x10^3/uL (0.0-0.2) Sodium Level 134 mmol/L (136-145) 129 mmol/L (136-145) Potassium Level 4.4 mmol/L (3.5-5.1) 4.7 mmol/L (3.5-5.1) Chloride Level 98 mmol/L (98-107) 95 mmol/L (98-107) Carbon Dioxide Level 27 mmol/L (21-32) 26 mmol/L (21-32) Anion Gap 9 (6-14) 8 (6-14) Blood Urea Nitrogen 10 mg/dL (7-20) 17 mg/dL (7-20) Creatinine 0.8 mg/dL (0.6-1.0) 1.0 mg/dL (0.6-1.0) Estimated GFR (Cockcroft-Gault) 72.9 56.4 BUN/Creatinine Ratio 13 (6-20) Glucose Level 101 mg/dL (70-99) 148 mg/dL (70-99) Calcium Level 9.5 mg/dL (8.5-10.1) 9.2 mg/dL (8.5-10.1) Magnesium Level 1.6 mg/dL (1.8-2.4) Total Bilirubin 0.9 mg/dL (0.2-1.0) Aspartate Amino Transf (AST/SGOT) 59 U/L (15-37) Alanine Aminotransferase (ALT/SGPT) 63 U/L (14-59) Alkaline Phosphatase 122 U/L (46-116) Troponin I Quantitative < 0.017 ng/mL (0.000-0.055) IV-Rfu-J-Type Natriuretic Peptide 22 pg/mL (0-124) Total Protein 8.8 g/dL (6.4-8.2) Albumin 3.6 g/dL (3.4-5.0) Albumin/Globulin Ratio 0.7 (1.0-1.7) Glucose (Fingerstick) 156 mg/dL (70-99) Medications Active Scripts Medications Dose Route/Sig Max Daily Dose Days Date Category Milk Thistle (Milk Thistle Seed Extract) 175 Mg Tablet 175 Mg PO DAILY 06/14/20 Reported Folic Acid 0.4 Mg Tablet 0.4 Mg PO DAILY 06/14/20 Reported B-12 (Cyanocobalamin (Vitamin B-12)) 1,000 Mcg Tablet 1 Tab PO DAILY 30 06/14/20 Reported Atorvastatin Calcium 20 Mg Tablet 1 Tab PO DAILY 90 11/05/19 Rx Metformin Hcl 500 Mg Tablet 500 Mg PO BIDWMEALS 90 11/05/19 Rx Montelukast Sodium Tablet (Montelukast Sodium) 10 Mg Tablet 10 Mg PO HS 90 11/05/19 Rx Cetirizine Hcl 10 Mg Tablet 1 Tab PO DAILY 11/02/19 Reported Albuterol Sulfate Conc Neb Soln (Albuterol Sulfate) 2.5 Mg/0.5 Ml Vial.neb 1 Vial NEB Q4HRS 10/11/19 Rx Aspir 81 (Aspirin) 81 Mg Tablet.dr 1 Tab PO DAILY 10/15/14 Reported Lisinopril 40 Mg Tablet 1 Tab PO DAILY 10/15/14 Reported Impression . 1. Acute respiratory failure secondary to acute exacerbation of chronic obstructive pulmonary disease, acute bronchitis, rule out COVID-19. 2. COVID-19 PUI. 3. Acute exacerbation of chronic obstructive pulmonary disease. 4. Acute bronchitis. 5. Ex-smoker. 6. Hypertension. Plan . PLAN AND RECOMMENDATIONS: 1. Titrate FiO2 to keep O2 saturation 92%. 2. Continue Solu-Medrol.change to PO 3. Bronchodilator. 4. Follow up COVID-19 testing. 5. Continue not smoking. 6. antibiotic. 7. The findings and recommendations were discussed with the pcp OK WITH ARA PRADO MD Jun 15, 2020 09:57
[2020-06-15 11:00] VITALS: BP 167/77
[2020-06-15] MEDS ORDERED: IPRA3AMP29 NEB (11:48)
--- NOTE | 2020-06-15 11:53 | PDOC ---
[facility] PROGRESS NOTE Date of Service DOS: DATE: 06/15/20 TIME: 11:38 Chief Complaint Chief Complaint ASSESSMENT AND PLAN: Respiratory failure. , ACUTE, HYPOXIC Acute exacerbation of chronic obstructive pulmonary disease. Acute bronchitis versus pneumonia. Ex-smoker. Hypertension. Macrocytosis - does drink moderately and B12 < 400 likely is deficient, was replaced Transaminitis MORBID OBESITY PLAN admitted. TAPERING IV steroids, breathing treatments, oxygen. Consult Pulmonary. Home meds. Deep venous thrombosis prophylaxis. Full code. History of Present Illness History of Present Illness The patient is a pleasant 59-year-old female who quit smoking 6 years ago. Basically, she has COPD and presented with shortness of breath and cough. She appears to have a COPD exacerbation, rates her symptoms at 7/10. She has associated weakness, has been occurring for several days. She increased her home meds, but that did not work, describes her symptoms as agonizing, worse with moving, better with sitting still. I discussed the case with ER physician. We are going to admit the patient and consult Pulmonary Medicine. 06/15: Patient evaluated bedside. She is breathing comfortably on room air. Still complains of cough. Discussed smoking cessation. COVID-19 results pending. Discussed with pulmonology, will D/C home on oral antibiotics and DuoNeb refill. Patient denies fever, diarrhea, abdominal pain. Greater than 30 minutes was spent managing the discharge this patient. Vitals/I&O Vitals/I&O: Vital Signs Date Time Temp Pulse Resp B/P (MAP) Pulse Ox O2 Delivery O2 Flow Rate FiO2 06/15/20 11:00 97.5 71 23 167/77 (107) 96 Room Air 97.5 06/14/20 08:00 2.0 I & O 0 06/14/20 06/14/20 06/15/20 15:00 23:00 07:00 Intake Total 1300 ml 1550 ml 120 ml Balance 1300 ml 1550 ml 120 ml Physical Exam Physical Exam: GENERAL: No apparent distress. Alert and oriented. HEENT: Normal cephalic atraumatic, external auditory canals are patent EYES: Extraocular muscles are intact, pupils are equally round and reactive to light and accommodation MUSCULOSKELETAL: Well developed, well nourished, good range of motion ENDOCRINE: No thyromegaly was palpated LYMPHATICS: No cervical chain or axillary nodes were noted HEMATOPOIETIC: No bruising NECK: Supple, no JVD, no thyromegaly was noted. LUNGS: all lung pandya WITH EXP wheezing. HEART: RRR, S1, S2 present. Peripheral pulses intact, no obvious murmurs were noted. ABDOMEN: She has decreased bowel sounds. EXTREMITIES: Without any cyanosis, clubbing, or edema. Pedal pulses intact, Homans sign is negative. NEUROLOGIC: Normal speech, normal tone. A & O x3, moves all extremities, no obvious focal deficits. PSYCHIATRIC: Normal affect, normal mood. Stable. SKIN: No ulcerations or rashes, good skin turgor, no jaundice. VASCULAR: Good capillary refill, neurovascular bundle appears to be intact. Review of Systems Review of Systems: Cough. Denies chest pain, denies fever, denies shortness of breath. Assessment and Plan Assessmemt and Plan Problems Medical Problems: (1) COPD exacerbation Status: Acute (2) Hypomagnesemia Status: Acute (3) Person under investigation for COVID-19 Status: Acute Comment Review of Relevant I have reviewed the following items bryant (where applicable) has been applied. Medications: Current Medications Medications (Trade) Dose Ordered Sig/Bren Route PRN Reason Start Time Stop Time Status Last Admin Dose Admin Magnesium Sulfate 50 ml @ 25 mls/hr 1X ONCE IV 06/14/20 12:00 06/14/20 13:59 DC 06/14/20 11:47 Aspirin (Ecotrin) 81 mg DAILY PO 06/15/20 09:00 06/15/20 08:03 Atorvastatin Calcium (Lipitor) 20 mg QHS PO 06/14/20 21:00 06/14/20 20:18 Cetirizine HCl (ZyrTEC) 10 mg DAILY PO 06/15/20 09:00 06/15/20 08:03 Cyanocobalamin (Vitamin B-12) 1,000 mcg DAILY PO 06/15/20 09:00 06/15/20 08:03 Lisinopril (Prinivil) 40 mg DAILY PO 06/15/20 09:00 06/15/20 08:03 Metformin HCl (Glucophage) 500 mg BIDWMEALS PO 06/14/20 20:00 06/15/20 08:03 Montelukast Sodium (Singulair) 10 mg HS PO 06/14/20 21:00 06/14/20 20:18 Folic Acid (Folic Acid) 1 mg DAILY PO 06/15/20 09:00 06/15/20 08:03 Justifications for Admission Other Justification MARIN SOUTH MD Jun 15, 2020 11:53
[2020-06-15] MEDS ORDERED: BENZONATATE 100 MG CAPSULE. PO SCH (12:00)
[2020-06-15 12:36] LABS: BASO % 0 % (0-3); EOS % 0 % (0-3); HEMATOCRIT 36.9 % (36.0-47.0); HEMOGLOBIN 12.4 g/dL (12.0-15.5); LYMPH # 0.8 x10^3/uL (1.0-4.8); LYMPH % 8 % (24-48); MEAN CORPUSCULAR HEMOGLOBIN 34 pg (25-35); MEAN CORPUSCULAR HGB CONC 34 g/dL (31-37); MEAN CORPUSCULAR VOLUME 102 fL (79-100); MONO # 0.5 x10^3/uL (0.0-1.1); MONO % 5 % (0-9); NEUT # 8.5 x10^3/uL (1.8-7.7); NEUT % 87 % (31-73); PLATELET COUNT 228 x10^3/uL (140-400); RED BLOOD COUNT 3.62 x10^6/uL (3.50-5.40); RED CELL DISTRIBUTION WIDTH 13.4 % (11.5-14.5); WHITE BLOOD COUNT 9.7 x10^3/uL (4.0-11.0)
[2020-06-15] MEDS ORDERED: AMOX1TAB61 PO (12:40)
[2020-06-15] MEDS ORDERED: GUAI400T78 PO (12:48)
[2020-06-15 12:51] LABS: CALCIUM 9.1 mg/dL (8.5-10.1); CREATININE 0.7 mg/dL (0.6-1.0); GFR 85.1; POTASSIUM 4.3 mmol/L (3.5-5.1)
--- NOTE | 2020-06-15 12:52 | PDOC3 ---
Discharge Summary Visit Information Date of Admission: Jun 13, 2020 Date of Discharge: Jun 15, 2020 Final Diagnosis Problems Medical Problems: (1) COPD exacerbation Status: Acute (2) Hypomagnesemia Status: Acute (3) Person under investigation for COVID-19 Status: Acute Brief Hospital Course Allergies Allergies Coded Allergies Type Severity Reaction Last Updated Verified No Known Drug Allergies 10/15/14 No Vital Signs Vital Signs Date Time Temp Pulse Resp B/P (MAP) Pulse Ox O2 Delivery O2 Flow Rate FiO2 06/15/20 11:00 97.5 71 23 167/77 (107) 96 Room Air 97.5 06/14/20 08:00 2.0 Lab Results Laboratory Tests Test 06/13/20 14:32 06/13/20 14:35 06/14/20 07:39 06/14/20 07:54 Lactic Acid Level 1.2 mmol/L (0.4-2.0) White Blood Count 7.2 x10^3/uL (4.0-11.0) 6.8 x10^3/uL (4.0-11.0) Red Blood Count 3.67 x10^6/uL (3.50-5.40) 3.59 x10^6/uL (3.50-5.40) Hemoglobin 12.8 g/dL (12.0-15.5) 12.3 g/dL (12.0-15.5) Hematocrit 37.3 % (36.0-47.0) 36.5 % (36.0-47.0) Mean Corpuscular Volume 102 fL (79-100) 102 fL (79-100) Mean Corpuscular Hemoglobin 35 pg (25-35) 34 pg (25-35) Mean Corpuscular Hemoglobin Concent 34 g/dL (31-37) 34 g/dL (31-37) Red Cell Distribution Width 12.9 % (11.5-14.5) 13.0 % (11.5-14.5) Platelet Count 219 x10^3/uL (140-400) 205 x10^3/uL (140-400) Neutrophils (%) (Auto) 51 % (31-73) 84 % (31-73) Lymphocytes (%) (Auto) 25 % (24-48) 13 % (24-48) Monocytes (%) (Auto) 10 % (0-9) 2 % (0-9) Eosinophils (%) (Auto) 13 % (0-3) 0 % (0-3) Basophils (%) (Auto) 1 % (0-3) 0 % (0-3) Neutrophils # (Auto) 3.7 x10^3/uL (1.8-7.7) 5.8 x10^3/uL (1.8-7.7) Lymphocytes # (Auto) 1.8 x10^3/uL (1.0-4.8) 0.9 x10^3/uL (1.0-4.8) Monocytes # (Auto) 0.7 x10^3/uL (0.0-1.1) 0.1 x10^3/uL (0.0-1.1) Eosinophils # (Auto) 0.9 x10^3/uL (0.0-0.7) 0.0 x10^3/uL (0.0-0.7) Basophils # (Auto) 0.1 x10^3/uL (0.0-0.2) 0.0 x10^3/uL (0.0-0.2) Sodium Level 134 mmol/L (136-145) 129 mmol/L (136-145) Potassium Level 4.4 mmol/L (3.5-5.1) 4.7 mmol/L (3.5-5.1) Chloride Level 98 mmol/L (98-107) 95 mmol/L (98-107) Carbon Dioxide Level 27 mmol/L (21-32) 26 mmol/L (21-32) Anion Gap 9 (6-14) 8 (6-14) Blood Urea Nitrogen 10 mg/dL (7-20) 17 mg/dL (7-20) Creatinine 0.8 mg/dL (0.6-1.0) 1.0 mg/dL (0.6-1.0) Estimated GFR (Cockcroft-Gault) 72.9 56.4 BUN/Creatinine Ratio 13 (6-20) Glucose Level 101 mg/dL (70-99) 148 mg/dL (70-99) Calcium Level 9.5 mg/dL (8.5-10.1) 9.2 mg/dL (8.5-10.1) Magnesium Level 1.6 mg/dL (1.8-2.4) Total Bilirubin 0.9 mg/dL (0.2-1.0) Aspartate Amino Transf (AST/SGOT) 59 U/L (15-37) Alanine Aminotransferase (ALT/SGPT) 63 U/L (14-59) Alkaline Phosphatase 122 U/L (46-116) Troponin I Quantitative < 0.017 ng/mL (0.000-0.055) QA-Nxz-V-Type Natriuretic Peptide 22 pg/mL (0-124) Total Protein 8.8 g/dL (6.4-8.2) Albumin 3.6 g/dL (3.4-5.0) Albumin/Globulin Ratio 0.7 (1.0-1.7) Glucose (Fingerstick) 156 mg/dL (70-99) Test 06/15/20 12:10 White Blood Count 9.7 x10^3/uL (4.0-11.0) Red Blood Count 3.62 x10^6/uL (3.50-5.40) Hemoglobin 12.4 g/dL (12.0-15.5) Hematocrit 36.9 % (36.0-47.0) Mean Corpuscular Volume 102 fL (79-100) Mean Corpuscular Hemoglobin 34 pg (25-35) Mean Corpuscular Hemoglobin Concent 34 g/dL (31-37) Red Cell Distribution Width 13.4 % (11.5-14.5) Platelet Count 228 x10^3/uL (140-400) Neutrophils (%) (Auto) 87 % (31-73) Lymphocytes (%) (Auto) 8 % (24-48) Monocytes (%) (Auto) 5 % (0-9) Eosinophils (%) (Auto) 0 % (0-3) Basophils (%) (Auto) 0 % (0-3) Neutrophils # (Auto) 8.5 x10^3/uL (1.8-7.7) Lymphocytes # (Auto) 0.8 x10^3/uL (1.0-4.8) Monocytes # (Auto) 0.5 x10^3/uL (0.0-1.1) Eosinophils # (Auto) 0.0 x10^3/uL (0.0-0.7) Basophils # (Auto) 0.0 x10^3/uL (0.0-0.2) Laboratory Tests Test 06/15/20 12:10 White Blood Count 9.7 x10^3/uL (4.0-11.0) Red Blood Count 3.62 x10^6/uL (3.50-5.40) Hemoglobin 12.4 g/dL (12.0-15.5) Hematocrit 36.9 % (36.0-47.0) Mean Corpuscular Volume 102 fL (79-100) Mean Corpuscular Hemoglobin 34 pg (25-35) Mean Corpuscular Hemoglobin Concent 34 g/dL (31-37) Red Cell Distribution Width 13.4 % (11.5-14.5) Platelet Count 228 x10^3/uL (140-400) Neutrophils (%) (Auto) 87 % (31-73) Lymphocytes (%) (Auto) 8 % (24-48) Monocytes (%) (Auto) 5 % (0-9) Eosinophils (%) (Auto) 0 % (0-3) Basophils (%) (Auto) 0 % (0-3) Neutrophils # (Auto) 8.5 x10^3/uL (1.8-7.7) Lymphocytes # (Auto) 0.8 x10^3/uL (1.0-4.8) Monocytes # (Auto) 0.5 x10^3/uL (0.0-1.1) Eosinophils # (Auto) 0.0 x10^3/uL (0.0-0.7) Basophils # (Auto) 0.0 x10^3/uL (0.0-0.2) Brief Hospital Course Ms. Meraz is a 59 old female who presented with COPD exacerbation, COVID-19 PUI. Consultation placed to cardiology. She was treated with breathing treatments, steroids, and antibiotics. Her symptoms improved and she was stable for discharge home to continue her antibiotic regimen outpatient. She has a nebulizer at home, and her duo nebs were refilled prior to discharge. She was instructed to follow-up with her PCP within the next 5 to 7 days. Discharge Information Condition at Discharge: Improved Follow Up: Weeks Disposition/Orders: D/C to Home Scheduled Albuterol Sulfate (Albuterol Sulfate Conc Neb Soln) 2.5 Mg/0.5 Ml Vial.neb, 1 VIAL NEB Q4HRS, #60 Ref 1 Prescribed by: PRUDENCE LEWIS D.O. on 10/11/19 0729 Last Action: Reviewed on 06/14/20 06 by Shannan Fuentes Amoxicillin/Potassium Clav (Augmentin 875-125 Tablet) 1 Each Tablet, 1 TAB PO BID for COPD for 4 Days, #8 Ref 0 Prescribed by: MARIN SOUTH MD on 06/15/20 1240 Aspirin (Aspir 81) 81 Mg Tablet.dr, 1 TAB PO DAILY, #30 Ref 5 (Reported) Entered as Reported by: SHADI ZHANG on 10/15/14 220 Last Action: Continued on 06/14/201830 by JESUS BURGOS RN Atorvastatin Calcium (Atorvastatin Calcium) 20 Mg Tablet, 1 TAB PO DAILY for HLD for 90 Days, #90 Ref 0 Prescribed by: YOHANA PERKINS MD on 11/05/19 1241 Last Action: Continued on 06/14/201830 by JESUS BURGOS RN Cetirizine Hcl (Cetirizine Hcl) 10 Mg Tablet, 1 TAB PO DAILY for , #30 Ref 5 (Reported) Entered as Reported by: VERÓNICA GILL RN on 11/02/191818 Last Action: Continued on 06/14/201830 by JESUS BURGOS RN Cyanocobalamin (Vitamin B-12) (B-12) 1,000 Mcg Tablet, 1 TAB PO DAILY for supp for 30 Days, #30 Ref 0 (Reported) Entered as Reported by: JESUS BURGOS RN on 06/14/20803 Last Taken: Unknown Dose on 06/14/20 Last Action: Continued on 06/14/201830 by JESUS BURGOS RN Folic Acid (Folic Acid) 0.4 Mg Tablet, 0.4 MG PO DAILY for SUPPLEMENT, (Reported) Entered as Reported by: JESUS BURGOS RN on 06/14/20803 Last Taken: Unknown Dose on 06/14/20 Last Action: Converted on 06/14/201830 by JESUS BURGOS RN Ipratropium/Albuterol Sulfate (Duoneb 0.5-3(2.5) Mg/3 Ml) 3 Ml Ampul.neb, 3 ML NEB Q4HRS W/A for COPD, #30 Ref 1 Prescribed by: MARIN SOUTH MD on 06/15/20 1148 Lisinopril (Lisinopril) 40 Mg Tablet, 1 TAB PO DAILY, #30 Ref 5 (Reported) Entered as Reported by: SHADI ZHANG on 10/15/142201 Last Action: Continued on 06/14/201830 by JESUS BURGOS RN Metformin Hcl (Metformin Hcl) 500 Mg Tablet, 500 MG PO BIDWMEALS for Prediabetes for 90 Days, #180 Ref 0 Prescribed by: YOHANA PERKINS MD on 11/05/19 1235 Last Action: Continued on 06/14/201830 by JESUS BURGOS RN Milk Thistle Seed Extract (Milk Thistle) 175 Mg Tablet, 175 MG PO DAILY for supp, (Reported) Entered as Reported by: JESUS BURGOS RN on 06/14/20 0804 Last Taken: Unknown Dose on 06/14/20 Last Action: Converted on 06/14/201830 by JESUS BURGOS RN Montelukast Sodium (Montelukast Sodium Tablet ) 10 Mg Tablet, 10 MG PO HS for FOR ASTHMA for 90 Days, #90 Ref 0 Prescribed by: YOHANA PERKINS MD on 11/05/19 1235 Last Action: Continued on 06/14/201830 by JESUS BURGOS RN Scheduled PRN Guaifenesin (Guaifenesin) 400 Mg Tablet, 1 TAB PO TID PRN for COUGH for 5 Days, #15 Ref 0 Prescribed by: MARIN SOUTH MD on 06/15/20 1248 Justicifation of Admission Dx: Justifications for Admission: Justification of Admission Dx: Yes Acute COPD Exacerbation: Acute COPD Exacerbation MARIN SOUTH MD Jun 15, 2020 12:52
[2020-06-15 13:19] LABS: % BANDS 2 % (0-9); % LYMPHS 7 % (24-48); % MONOS 5 % (0-10); % SEGS 86 % (35-66); PLT ESTIMATE ADEQUATE (ADEQUATE)
--- NOTE | 2020-06-15 14:59 | NUR ---
Discharge Note: DEBRA KEYS Discharge instructions and discharge home medications reviewed with Patient and a copy given. All questions have been answered and understanding verbalized. The following instructions and handouts were given: COPD and Smoking cessation tips. Discontinued iv line and catheter. Patient discharged to home; drove self with own car parked by ED.
--- NOTE | 2020-06-16 10:40 | NUR ---
IP: Informed pt of negative COVID test. Pt verbalized understanding.
== END 2020-06-15 14:45 | disposition home or self-care (01) | DRG 189 ==
LOC: ER 14:08 → ED HOLD 16:45 → 2 SOUTH 22:44
PROVIDERS: ADMIT Internal Medicine; ATTEND Internal Medicine
DX: J96.01 Acute respiratory failure with hypoxia (principal); J44.1 Chronic obstructive pulmonary disease with (acute) exacerbation; J44.0 Chronic obstructive pulmonary disease with (acute) lower respiratory infection; J20.9 Acute bronchitis, unspecified; E78.00 Pure hypercholesterolemia, unspecified; I10 Essential (primary) hypertension; E83.42 Hypomagnesemia; E78.5 Hyperlipidemia, unspecified; D75.89 Other specified diseases of blood and blood-forming organs; E66.01 Morbid (severe) obesity due to excess calories; Z20.828 Contact with and (suspected) exposure to other viral communicable diseases; Z68.34 Body mass index [BMI] 34.0-34.9, adult; Z87.891 Personal history of nicotine dependence; Z90.721 Acquired absence of ovaries, unilateral; Z83.3 Family history of diabetes mellitus; Z82.49 Family history of ischemic heart disease and other diseases of the circulatory system
CPT/HCPCS: 36415; 71045; 80048; 80053; 82962; 83605; 83735; 83880; 84484; 85007; 85025; 87040; 94640; J0696; J2920; J2930; J3475; U0003; G0378